=== PATIENT | female | born 1960 | race Caucasian/White ===

== ENCOUNTER 2021-09-23 15:35 | Observation (INO) ==
[2021-09-23 15:56] LABS: Basophils # (auto) 0.02 K/uL (0-0.2); Basophils % (auto) 0.2 %; Eosinophils # (auto) 0.05 K/uL (0-0.5); Eosinophils % (auto) 0.5 %; Hematocrit (blood only) 42.1 % (37-47); Hemoglobin 14.7 g/dL (12.0-16.0); Immature Granulocytes # (auto) 0.02 K/uL (0.00-0.02); Immature Granulocytes % (auto) 0.2 %; Lymphocytes # (auto) 1.92 K/uL (1.2-3.4); Lymphocytes % (auto) 19.7 %; Mean Corpuscular Hemoglobin 33.5 pg (25-34); Mean Corpuscular Hgb Conc 34.9 g/dL (32-36); Mean Corpuscular Volume 95.9 fL (80-100); Mean Platelet Volume 9.3 fL (7.4-10.4); Monocytes # (auto) 0.48 K/uL (0.11-0.59); Monocytes % (auto) 4.9 %; Neutrophils # (auto) 7.28 K/uL (1.4-6.5); Neutrophils % (auto) 74.5 %; Platelet Count 263 K/uL (130-400); RDW Coefficient of Variation 12.9 % (11.5-14.5); RDW Standard Deviation 44.5 fL (36.4-46.3); Red Blood Count 4.39 M/uL (4.2-5.4); White Blood Count 9.77 K/uL (4.8-10.8)
[2021-09-23] MEDS ORDERED: ASPIRIN CHEW 324 MG PO STA (15:56)
[2021-09-23] MEDS ORDERED: NITROGLYCERIN SL 0.4 MG/TAB TAB SL STA (15:56)
--- NOTE | 2021-09-23 15:56 | Emergency Department Note ---
Impression & Plan Chest pain, Acute hyponatremia, HTN (hypertension) ED Provider Note NAME: MAXIMUS BARRON AGE: 61 SEX: F : 1960 ARRIVES VIA: Ambulance INFORMANT: Patient ED PROVIDER(S): Petr Hobbs DO CHIEF COMPLAINT: Chest pain HPI: Patient is a 61-year-old female with a past medical history of diabetes, hypertension, hyperlipidemia, smoker who presents the ER for left-sided chest pressure. Denies any arm or jaw pain. Pain radiates into the chest and wraps around both sides to her back. Denies any belly pain, nausea, vomiting, or diarrhea. No dysuria, urgency, or frequency. Patient was receiving a mammogram and this is been present just after 2 PM. She was given nitro and aspirin with minimal relief prior to arrival. No other exacerbating remitting factors. ROS: See above HPI for pertinent positives & negatives. A total of 10 systems reviewed and were otherwise negative. PAST MEDICAL HISTORY:See Below PAST SURGICAL HISTORY:See Below FAMILY HISTORY:See Below SOCIAL HISTORY:See Below HOME MEDICATIONS:See Below ALLERGIES:See Below VITALS:See Below PHYSICAL EXAMINATION: GENERAL: Sitting up in bed, alert, well appearing, well nourished, no distress, non-toxic EYE EXAM: normal conjunctiva. PERRL and EOM's grossly intact. OROPHARYNX: no exudate, no erythema, lips, buccal mucosa, and tongue normal and mucous membranes are moist NECK: supple, no nuchal rigidity, no adenopathy, non-tender LUNGS: Clear to auscultation. Normal chest wall mechanics HEART: no murmurs, S1 normal and S2 normal ABDOMEN: abdomen soft, non-tender, normo-active bowel sounds, no masses, no rebound or guarding. UPPER EXTREMITIES: upper extremities are grossly normal. LOWER EXTREMITIES: No pitting edema. NEURO EXAM: Normal sensorium, cranial nerves II-XII grossly intact, normal speech, no gross weakness of arms, no gross weakness of legs. MEDICAL DECISION MAKING: Patient is a 61-year-old female who presents ER for precordial chest pain. IV was established blood was obtained. Labs show no significant leukocytosis or anemia. BMP with mild hyponatremia. LFTs bilirubin and lipase is unremarkable. Troponin was negative. Covid was negative. Angio of the chest was unremarkable. CT did show moderate atherosclerosis and she does have a history of diabetes, hypertension, hyperlipidemia and smokes. She is not a low risk per heart score and consequently was discussed with hospitalist for further evaluation. She given aspirin prior to arrival. Here she was given nitro and morphine. EKG was unremarkable. Triage Nursing notes reviewed. Limited review of prior medical records performed Vital Signs: reviewed and remarkable for HTN and tachy Differential diagnosis: Differential diagnoses includes but is not limited to acute coronary syndrome, myocardial infarction, pericarditis, pulmonary embolus, aortic dissection, pneumonia, pneumothorax, musculoskeletal, shingles, esophageal. ER treatment provided: See below Diagnostics interpreted by me: ECG: Sinus tachycardia rate of 113 Normal axis No PVCs QTC 416 Cardiac Monitoring: An order was placed for continuous cardiac monitoring. The monitor shows a rate of 102 with sinus rhythm. Laboratory studies: As stated above and show below. Imaging studies: CTA of the chest was unremarkable Chest x-ray was unremarkable Consultation(s): Discussed with the hospitalist for further evaluation Procedures: none Critical Care: None Past Med/Surg History Medical History (Updated 09/23/21 @ 20:37 by Petr Hobbs DO) Diabetes HTN (hypertension) Hyperlipidemia Surgical History (Updated 09/23/21 @ 18:18 by Em Zavala PA-C) History of colonoscopy S/P tonsillectomy Family History (Updated 09/23/21 @ 18:19 by Em Zavala PA-C) Father , 70s Coronary heart disease Hx of CABG Mother Colorectal cancer Social History (Updated 09/23/21 @ 18:20 by Em Zavala PA-C) Smoking Status: Current every day smoker Tobacco Type: Cigarettes Years Smoked: 40; Cigarettes Per Day: 12; Do You Dip or Chew Tobacco: No; Hx Alcohol Use: Yes Alcohol type: beer Alcohol type Comment: daily, 3-4 light beers Hx Substance Use: No Preferred Language: Portuguese Communication Ability: Effective Media Services Coordinator Required: No Beliefs That Will Affect Care: None Current Living Situation: Family Current Living Situation Comment: Lives with sister Other Information That Helps Us Care for You: No Feels Safe at Home: Yes Safety Concerns: Feels Safe At This Time Assistive Devices: Glasses Allergies Allergies Allergy/AdvReac Type Severity Reaction Status Date / Time Penicillins Allergy Unknown UNKNOWN Unverified 09/23/21 17:31 Sulfa (Sulfonamide Allergy Unknown UNKNOWN Unverified 09/23/21 17:31 Antibiotics) tetracycline Allergy Unknown UNKNOWN Unverified 09/23/21 17:31 Home Meds Home Medications Medication Instructions Recorded Confirmed acetaminophen 500 mg tablet 1,000 mg PO Q6H PRN 09/23/21 09/23/21 (Tylenol Extra Strength) atorvastatin 40 mg tablet 40 mg PO DAILY 09/23/21 09/23/21 citalopram 10 mg tablet 10 mg PO DAILY 09/23/21 09/23/21 insulin aspart U-100 100 unit/mL 0 unit SUBCUT TIDM 09/23/21 09/23/21 (3 mL) subcutaneous pen (Novolog Flexpen U-100 Insulin aspart) lisinopril 10 mg tablet 10 mg PO DAILY 09/23/21 09/23/21 meloxicam 15 mg tablet 15 mg PO DAILY 09/23/21 09/23/21 vitamin B complex 1 cap PO DAILY 09/23/21 09/23/21 Results & Data (ED) Vital Signs Vital Signs - 24 hr 09/23/21 15:51 09/23/21 16:10 Temperature 37 C Temperature Source Oral Pulse Rate 112 H 125 H Pulse Rate [Apical] 125 H Respiratory Rate 20 17 Blood Pressure 183/96 H Blood Pressure [Right Arm] 165/77 H Blood Pressure Mean 125 Blood Pressure Mean [Right Arm] 106 Pulse Oximetry 96 96 Oxygen Delivery Method Room Air Room Air Sepsis Recent Fever Within 48 Hours No Sepsis New/Unexplained Change in Mental Status No Sepsis Action Taken by Nursing No Action Required Laboratory Data Result diagrams: 09/23/21 15:28 09/23/21 15:28 Lab Results 09/23/21 09/23/21 Range/Units 15:28 15:28 WBC 9.77 (4.8-10.8) K/uL RBC 4.39 (4.2-5.4) M/uL Hgb 14.7 (12.0-16.0) g/dL Hct 42.1 (37-47) % MCV 95.9 (80-100) fL MCH 33.5 (25-34) pg MCHC 34.9 (32-36) g/dL RDW Std Deviation 44.5 (36.4-46.3) fL RDW Coeff of Luis Manuel 12.9 (11.5-14.5) % Plt Count 263 (130-400) K/uL MPV 9.3 (7.4-10.4) fL Immature Gran % (Auto) 0.2 % Neut % (Auto) 74.5 % Lymph % (Auto) 19.7 % [place] % (Auto) 4.9 % Eos % (Auto) 0.5 % Baso % (Auto) 0.2 % Neut # (Auto) 7.28 H (1.4-6.5) K/uL Lymph # (Auto) 1.92 (1.2-3.4) K/uL [place] # (Auto) 0.48 (0.11-0.59) K/uL Eos # (Auto) 0.05 (0-0.5) K/uL Baso # (Auto) 0.02 (0-0.2) K/uL Immature Gran # (Auto) 0.02 (0.00-0.02) K/uL Sodium 132 L (136-145) mmol/L Potassium 4.3 (3.5-5.1) mmol/L Chloride 99 (98-107) mmol/L Carbon Dioxide 23 (21-32) mmol/L Anion Gap 10 (3-11) BUN 22 (6-23) mg/dl Creatinine 1.02 (0.6-1.2) mg/dl Est Cr Clr Drug Dosing 58.1 ml/min Est GFR ( Amer) 67.8 ml/min Est GFR (Non-Af Amer) 58.5 ml/min BUN/Creatinine Ratio 21.6 H (10-20) Glucose 145 H (70-99(Fasting)) mg/dl Calcium 9.2 (8.5-10.1) mg/dl Total Bilirubin 0.9 (0.2-1.0) mg/dl AST 58 H (13-39) U/L ALT 41 (7-52) U/L Alkaline Phosphatase 87 (34-104) U/L Troponin I < 0.03 (0-0.04) ng/ml Total Protein 7.5 (6.0-8.3) gm/dl Albumin 4.5 (3.4-5.0) gm/dl Globulin 3.0 (2.5-4.0) gm/dl Albumin/Globulin Ratio 1.5 (0.9-2) Lipase 49 (11-82) U/L Administered Medications Discontinued Medications Aspirin (Aspirin Chew 324 Mg) 324 mg PO NOW STA Stop: 09/23/21 15:57 Last Admin: 09/23/21 16:05 Dose: Not Given Documented by: [id number] Ioversol (Optiray 320 125ml) 120 ml IV ONCE ONE Stop: 09/23/21 16:49 Last Admin: 09/23/21 16:49 Dose: 1 ml Documented by: [id number] Lisinopril (Lisinopril 10 Mg Tab) 10 mg PO NOW ONE Stop: 09/23/21 19:31 Last Admin: 09/23/21 20:24 Dose: 10 mg Documented by: [id number] Morphine Sulfate (Morphine Sulfate 4 Mg/Ml 1 Ml Carp\Vial) 4 mg IV NOW STA Stop: 09/23/21 16:27 Last Admin: 09/23/21 16:35 Dose: 4 mg Documented by: [id number] Morphine Sulfate (Morphine Sulfate 2 Mg/Ml Carp) 2 mg IV NOW STA Stop: 09/23/21 18:10 Last Admin: 09/23/21 18:39 Dose: 2 mg Documented by: [id number] Nitroglycerin (Nitroglycerin Sl 0.4 Mg/Tab Tab) 0.4 mg SL NOW STA Stop: 09/23/21 15:57 Last Admin: 09/23/21 16:09 Dose: 0.4 mg Documented by: [id number] Imaging Data Radiologist's Impression: Chest X-Ray 09/23/21 15:44 XR chest 1V portable CLINICAL HISTORY: Atypical chest pain TECHNIQUE: Single frontal radiograph of the chest was obtained. Comparison: Comparison is made to chest one view 01/16/2019 FINDINGS: No lines and tubes are seen. Calcified aortic knob is seen. The lungs are clear. No evidence of pleural effusion or pneumothorax. IMPRESSION: No acute chest disease. ACT 112: Negative or not required by law. Electronically signed by: Jordan Ordoñez M.D. 09/23/2021 4:46 PM Chest CTA 09/23/21 15:55 CT angio chest PE protocol CLINICAL HISTORY: PE. Atypical chest pain. TECHNIQUE: Multidetector row helical CT of the chest was performed with angiographic protocol. Coronal and sagittal reformations were obtained. Coronal and sagittal MIPS were obtained from the axial data set and were submitted for review. Automated dose lowering techniques and/or adjustment according to patient size were utilized for this exam. Comparison: None available at the time of this dictation. FINDINGS: Lungs and pleura: Diffuse centrilobular emphysema is seen most prominent in the upper lobes. Heart and pericardium: Heart size is normal. No pericardial effusion. Vessels: Moderate atherosclerotic changes in the aorta and coronary arteries. No evidence of pulmonary embolism. Mediastinum and sara: Unremarkable. Chest wall and lower neck: Subcentimeter thyroid nodules are noted which do not require follow-up by ACR criteria. Abdomen: Unremarkable. Bones: Degenerative changes in the thoracic spine. IMPRESSION: 1. No evidence of pulmonary embolism. 2. Moderate atherosclerosis. Diffuse emphysema. ACT 112: Negative or not required by law. Electronically signed by: Jordan Ordoñez M.D. 09/23/2021 5:12 PM Discharge Plan Visit Data Chief Complaint: Cardiac Assessment Stated Complaint: chest pressure/hypertension ED Provider: Petr Hobbs ED Midlevel Provider: Arabella Billings Discharge Problem: Chest pain, Acute hyponatremia, HTN (hypertension) Patient Disposition: Admitted As Inpatient Discharge Instructions Interventions: ED Discharge Assessment Last Done: 09/23/21 19:38
[2021-09-23 16:20] LABS: Alanine Aminotransferase 41 U/L (7-52); Albumin Globulin Ratio 1.5 (0.9-2); Albumin Level 4.5 gm/dl (3.4-5.0); Alkaline Phosphatase 87 U/L (34-104); Anion Gap 10 (3-11); Aspartate Aminotransferase 58 U/L (13-39); BUN Creatinine Ratio 21.6 (10-20); Bilirubin,Total 0.9 mg/dl (0.2-1.0); Blood Urea Nitrogen 22 mg/dl (6-23); Calcium 9.2 mg/dl (8.5-10.1); Carbon Dioxide 23 mmol/L (21-32); Chloride 99 mmol/L (98-107); Creatinine Clr Calc Pharmacy 58.1 ml/min; Est GFR (African American) 67.8 ml/min; Est GFR (Non-African American) 58.5 ml/min; Glucose 145 mg/dl (70-99(Fasting)); Lipase 49 U/L (11-82); Potassium 4.3 mmol/L (3.5-5.1); Sodium 132 mmol/L (136-145); Total Protein 7.5 gm/dl (6.0-8.3)
[2021-09-23 16:21] LABS: Troponin I < 0.03 ng/ml (0-0.04)
[2021-09-23] MEDS ORDERED: MoRPHine SULFATE 4 MG/ML 1 ML CARP\\VIAL IV STA (16:26)
--- NOTE | 2021-09-23 16:40 | Emergency Department Note ---
ED Visit Note Patient seen by myself and discussed with Dr. Hobbs who evaluated her separately. Please see his note for assessment and plan. Resident Activity Tracking Resident Involvement: Resident Care Provided Care Provided: Adult ED
--- NOTE | 2021-09-23 16:47 | XRay Report ---
XR chest 1V portable CLINICAL HISTORY: Atypical chest pain TECHNIQUE: Single frontal radiograph of the chest was obtained. Comparison: Comparison is made to chest one view 01/16/2019 FINDINGS: No lines and tubes are seen. Calcified aortic knob is seen. The lungs are clear. No evidence of pleur al effusion or pneumothorax. IMPRESSION: No acute chest disease. ACT 112: Negative or not required by law. Electronically signed by: Jordan Ordoñez M.D. 09/23/2021 4:46 PM
[2021-09-23] MEDS ORDERED: OPTIRAY 320 125ml IV ONE (16:48)
--- NOTE | 2021-09-23 17:13 | CT Scan Report ---
CT angio chest PE protocol CLINICAL HISTORY: PE. Atypical chest pain. TECHNIQUE: Multidetector row helical CT of the chest was performed with angiographic protocol. Marin l and sagittal reformations were obtained. Coronal and sagittal MIPS were obtained from the axial jonathan a set and were submitted for review. Automated dose lowering techniques and/or adjustment according to patient size were utilized for this exam. Comparison: None available at the time of this dictation. FINDINGS: Lungs and pleura: Diffuse centrilobular emphysema is seen most prominent in the upper lobes. Heart and pericardium: Heart size is normal. No pericardial effusion. Vessels: Moderate atherosclerotic changes in the aorta and coronary arteries. No evidence of pulmonar y embolism. Mediastinum and sara: Unremarkable. Chest wall and lower neck: Subcentimeter thyroid nodules are noted which do not require follow-up by ACR criteria. Abdomen: Unremarkable. Bones: Degenerative changes in the thoracic spine. IMPRESSION: 1. No evidence of pulmonary embolism. 2. Moderate atherosclerosis. Diffuse emphysema. ACT 112: Negative or not required by law. Electronically signed by: Jordan Ordoñez M.D. 09/23/2021 5:12 PM
[2021-09-23] MEDS ORDERED: LABETALOL HCL IV 5 MG/ML 20ML IV STA (18:07)
[2021-09-23] MEDS ORDERED: MoRPHine SULFATE 2 MG/ML CARP IV STA (18:09)
--- NOTE | 2021-09-23 18:27 | History & Physical Report ---
Date of Service September 23, 2021 Assessment & Plan (1) Chest pain: (2) Diabetes: (3) Hyperlipidemia: (4) HTN (hypertension): Plan: This is a 61-year-old female who has significant past medical history of T2DM, HTN, HLD, tobacco abuse, alcohol use who presents to ED after experiencing chest pain since 1330. Atypical chest pain Uncontrolled hypertension Sinus Tachycardia Admit to telemetry Patient with significant risk factors including HTN, HLD, T2DM, chronic tobacco and alcohol use Chest pain is still present, initial troponin negative, EKG without ST or T wave changes I am able to reproduce chest pain and left upper anterior chest wall, possible musculoskeletal component vs uncontrolled HTN vs ACS CTA negative for PE Cycle troponins, obtain echocardiogram A1c, lipid panel in a.m. Consult cardiology for possibility of stress test Give labetalol 5 mg x 1 now Continue lisinopril, Lipitor pt was on daily ASA but stopped taking add HS pepcid in event sx GERD related HTN Patient BP elevated in ED After review of epic vitals, blood pressure mostly well controlled Increase lisinopril 20mg, give 10mg this evening prn IV labetalol HLD Continue statin T2DM, well controlled A1c 5.7 in 06/2021 On NovoLog with meals as outpatient NovoLog per protocol A1c in a.m. Tobacco abuse Encourage smoking cessation Alcohol use Drinks 3-4 light beers daily Could possibly be culprit of tachycardia AWSS protocol Daily thiamine and folic acid DVT prophylaxis: SQ heparin Dispo: tele PCP: Dean FULL CODE Pt was seen and examined in collaboration with Dr. Styles, please see addendum History of Present Illness Chief Complaint: Chest pain since 0 Primary Care Provider: Abigail Moran, This is a 61-year-old female who has significant past medical history of T2DM, HTN, HLD, tobacco abuse, alcohol use who presents to ED after experiencing chest pain since 1330. She states that she presented to [facility] for a mammogram. Prior to mammogram at approximately 1330 she developed shakiness. Being a diabetic she thought maybe it was her blood sugar and staff gave her genesis crackers. This did not improve her symptoms. She then developed left- sided chest heaviness with radiation under both bilateral breasts near the rib cage as well as around to her back. Pain was constant, not made worse with inspiration, associated with initial shortness of breath that is since resolved, not associated with diaphoresis or nausea. She has never experienced similar pain in the past. She does admit to prior history of acid reflux as well as peptic ulcer disease secondary to H. pylori. She does not feel this is similar. Symptoms are not reproduced by movement. She has not walked since the incident so is unsure if exertion makes symptoms worse. She did proceed with the mammogram, but eventually it was stopped due to pain. Pain is currently a 4 out of 10. It improved after initiating IV morphine. Nitro was given in ED and this did not alleviate symptoms. She denies any prior history of heart disease. She denies any fever, chills, sweats, lightheadedness, dizziness, syncope, cough, hemoptysis, nausea, vomiting, abdominal pain, change in bowel or urinary habits. She denies any recent life stressors and does not feel anxious. Mammo was just routine screening. She is a chronic smoker for the past 30 to 40 years. She also drinks 3 to 4 cans of light beer a day. Her father has a history of CAD with bypass in his 70s. In ED patient was tachycardic and hypertensive. She admits to taking her lisinopril today.Her last alcoholic drink was last evening. Her CBC and CMP was generally unremarkable except for sodium 132, glucose 145, AST 58. Her chest CTA was negative for acute PE but did reveal moderate atherosclerosis as well as diffuse emphysema. Chest x-ray was negative for acute disease. Her initial troponin was undetectable and EKG revealed sinus tachycardia but no acute ST or T wave changes. Allergies Allergy/AdvReac Type Severity Reaction Status Date / Time Penicillins Allergy Unknown UNKNOWN Unverified 09/23/21 17:31 Sulfa (Sulfonamide Allergy Unknown UNKNOWN Unverified 09/23/21 17:31 Antibiotics) tetracycline Allergy Unknown UNKNOWN Unverified 09/23/21 17:31 Home Medications Medication Instructions Recorded Confirmed Type acetaminophen 500 mg tablet 1,000 mg PO Q6H PRN 09/23/21 09/23/21 History (Tylenol Extra Strength) atorvastatin 40 mg tablet 40 mg PO DAILY 09/23/21 09/23/21 History citalopram 10 mg tablet 10 mg PO DAILY 09/23/21 09/23/21 History insulin aspart U-100 100 unit/mL 0 unit SUBCUT TIDM 09/23/21 09/23/21 History (3 mL) subcutaneous pen (Novolog Flexpen U-100 Insulin aspart) lisinopril 10 mg tablet 10 mg PO DAILY 09/23/21 09/23/21 History meloxicam 15 mg tablet 15 mg PO DAILY 09/23/21 09/23/21 History vitamin B complex 1 cap PO DAILY 09/23/21 09/23/21 History Past Med/Surg History Medical History (Updated 09/23/21 @ 20:37 by Petr Hobbs DO) Diabetes HTN (hypertension) Hyperlipidemia Surgical History (Updated 09/23/21 @ 18:18 by Em Zavala PA-C) History of colonoscopy S/P tonsillectomy Family History (Updated 09/23/21 @ 18:19 by Em Zavala PA-C) Father , 70s Coronary heart disease Hx of CABG Mother Colorectal cancer Social History (Updated 09/23/21 @ 18:20 by Em Zavala PA-C) Smoking Status: Current every day smoker Tobacco Type: Cigarettes Years Smoked: 40; Cigarettes Per Day: 12; Do You Dip or Chew Tobacco: No; Hx Alcohol Use: Yes Alcohol type: beer Alcohol type Comment: daily, 3-4 light beers Hx Substance Use: No Preferred Language: Tongan Communication Ability: Effective Finished Carpet Inspector Required: No Beliefs That Will Affect Care: None Current Living Situation: Family Current Living Situation Comment: Lives with sister Other Information That Helps Us Care for You: No Feels Safe at Home: Yes Safety Concerns: Feels Safe At This Time Assistive Devices: Glasses Review of Systems Review of Systems: All systems reviewed & are unremarkable except as noted in HPI & below Physical Exam Physical Exam: Constitutional: WD/WN, vitals as above, NAD, sitting up in bed, pleasant, conversing easily Head: Normocephalic, Atraumatic Eyes: PERRL, conjunctivae normal, anicteric sclerae ENMT: external ear and nose normal, oropharynx normal Neck: trachea midline, no thyromegaly normal visual inspection Respiratory: normal respiratory effort, lungs clear to auscultation, no wheeze, rales, rhonchi. Normal insp/exp effort, no accessory muscle use Cardiovascular: Tachycardic rate, regular rhythm, no murmur, no edema Vessels: no JVD or carotid bruit Chest: normal inspection of chest , chest pain reproduced when palpating the left upper anterior chest wall, it does not reproduce underneath bilateral breas ts on the rib cage Abdomen: normal bowel sounds, soft, nontender, no hepatosplenomegaly Musculoskeletal: no cyanosis or clubbing, extremities motor strength 5/5 Skin: no rashes, warm and dry normal turgor Neurologic: PERRL, EOMI, accommodation nl, no face palsy, no dysarthria CN's II-XI intact bilaterally and moves all extremities Psychiatric: A+Ox3, euthymic affect Lymphatic: no cervical or axillary lymphadenopathy : deferred Results & Data Results & Data ([place]) Vital Signs (Past 12 Hours) Vital Signs Temp Pulse Pulse Resp BP BP Pulse Ox 09/23/21 16:10 125 H 125 H 17 165/77 H 96 09/23/21 15:51 37 C 112 H 20 183/96 H 96 Diagnostic Findings Chest X-Ray 09/23/21 15:44 XR chest 1V portable CLINICAL HISTORY: Atypical chest pain TECHNIQUE: Single frontal radiograph of the chest was obtained. Comparison: Comparison is made to chest one view 01/16/2019 FINDINGS: No lines and tubes are seen. Calcified aortic knob is seen. The lungs are clear. No evidence of pleural effusion or pneumothorax. IMPRESSION: No acute chest disease. ACT 112: Negative or not required by law. Electronically signed by: Jordan Ordoñez M.D. 09/23/2021 4:46 PM Chest CTA 09/23/21 15:55 CT angio chest PE protocol CLINICAL HISTORY: PE. Atypical chest pain. TECHNIQUE: Multidetector row helical CT of the chest was performed with angiographic protocol. Coronal and sagittal reformations were obtained. Coronal and sagittal MIPS were obtained from the axial data set and were submitted for review. Automated dose lowering techniques and/or adjustment according to patient size were utilized for this exam. Comparison: None available at the time of this dictation. FINDINGS: Lungs and pleura: Diffuse centrilobular emphysema is seen most prominent in the upper lobes. Heart and pericardium: Heart size is normal. No pericardial effusion. Vessels: Moderate atherosclerotic changes in the aorta and coronary arteries. No evidence of pulmonary embolism. Mediastinum and sara: Unremarkable. Chest wall and lower neck: Subcentimeter thyroid nodules are noted which do not require follow-up by ACR criteria. Abdomen: Unremarkable. Bones: Degenerative changes in the thoracic spine. IMPRESSION: 1. No evidence of pulmonary embolism. 2. Moderate atherosclerosis. Diffuse emphysema. ACT 112: Negative or not required by law. Electronically signed by: Jordan Ordoñez M.D. 09/23/2021 5:12 PM Medications Administered Medication List Discontinued Medications Aspirin (Aspirin Chew 324 Mg) 324 mg PO NOW STA Stop: 09/23/21 15:57 Last Admin: 09/23/21 16:05 Dose: Not Given Documented by: [id number] Ioversol (Optiray 320 125ml) 120 ml IV ONCE ONE Stop: 09/23/21 16:49 Last Admin: 09/23/21 16:49 Dose: 1 ml Documented by: [id number] Morphine Sulfate (Morphine Sulfate 4 Mg/Ml 1 Ml Carp\Vial) 4 mg IV NOW STA Stop: 09/23/21 16:27 Last Admin: 09/23/21 16:35 Dose: 4 mg Documented by: [id number] Nitroglycerin (Nitroglycerin Sl 0.4 Mg/Tab Tab) 0.4 mg SL NOW STA Stop: 09/23/21 15:57 Last Admin: 09/23/21 16:09 Dose: 0.4 mg Documented by: [id number] ECG Rate (beats per minute): 113 Rhythm: sinus tachycardia COVID-19 Results Results COVID-19 Adm Lab Results: RBC 4.39 M/uL (4.2-5.4) 09/23/21 WBC 9.77 K/uL (4.8-10.8) 09/23/21 Hgb 14.7 g/dL (12.0-16.0) 09/23/21 Hct 42.1 % (37-47) 09/23/21 Plt Count 263 K/uL (130-400) 09/23/21 Neutrophils (%) (Auto) 74.5 % 09/23/21 Lymphocytes (%) (Auto) 19.7 % 09/23/21 Monocytes # (Auto) 0.48 K/uL (0.11-0.59) 09/23/21 Eosinophils # (Auto) 0.05 K/uL (0-0.5) 09/23/21 Immature Granulocyte % (Auto) 0.2 % 09/23/21 Neutrophils # (Auto) 7.28 K/uL (1.4-6.5) H 09/23/21 Lymphocytes # (Auto) 1.92 K/uL (1.2-3.4) 09/23/21 Monocytes # (Auto) 0.48 K/uL (0.11-0.59) 09/23/21 Eosinophils # (Auto) 0.05 K/uL (0-0.5) 09/23/21 Basophils # (Auto) 0.02 K/uL (0-0.2) 09/23/21 Immature Granulocyte # (Auto) 0.02 K/uL (0.00-0.02) 09/23/21 Na 132 mmol/L (136-145) L 09/23/21 K 4.3 mmol/L (3.5-5.1) 09/23/21 Cl 99 mmol/L (98-107) 09/23/21 CO2 23 mmol/L (21-32) 09/23/21 Anion Gap 10 (3-11) 09/23/21 BUN 22 mg/dl (6-23) 09/23/21 Creatinine 1.02 mg/dl (0.6-1.2) 09/23/21 BUN/Creatinine Ratio 21.6 (10-20) H 09/23/21 Glucose Level 145 mg/dl (70-99(Fasting)) H 09/23/21 Ca 9.2 mg/dl (8.5-10.1) 09/23/21 Total Bilirubin 0.9 mg/dl (0.2-1.0) 09/23/21 AST/SGOT 58 U/L (13-39) H 09/23/21 ALT/SGPT 41 U/L (7-52) 09/23/21 Alkaline Phosphatase 87 U/L (34-104) 09/23/21 Total Protein 7.5 gm/dl (6.0-8.3) 09/23/21 Albumin 4.5 gm/dl (3.4-5.0) 09/23/21 Globulin 3.0 gm/dl (2.5-4.0) 09/23/21 Albumin/Globulin Ratio 1.5 (0.9-2) 09/23/21 Troponin I < 0.03 ng/ml (0-0.04) 09/23/21 SARS-CoV-2, RNA, NAAT NEGATIVE (NEGATIVE) 09/23/21 Chest X-Ray 09/23/21 Code Status & VTE Plan Code Status Full code VTE Prophylaxis Plan VTE Prophylaxis will be ordered: Yes Supervising Physician Co-Signing Physician Notes Patient is a 61-year-old female with history of diabetes mellitus, hypertension, hyperlipidemia, tobacco use and alcohol use disorder and other medical problems presents with history of chest pain associated with shakiness which started this afternoon. Patient describes chest pain to be pressure-like heaviness radiating to back, intermittently to shoulder and bilateral ribs. Patient states that nitroglycerin given in ED did not help with chest pain but morphine helped partly. She denies any recent infections. She admits to having GERD but currently not on any medications. Denies any HPI for complete details of presentation. Blood work suggestive of hyponatremia 132, glucose 145, AST 58, initial troponin negative. CTA showed no acute process which showed evidence of moderate atherosclerosis and diffuse emphysema. EKG showed sinus tachycardia without ST-T wave changes. On exam patient is well-built and nourished, no apparent distress, normocephalic atraumatic, EOMI, normal breath sounds, clear to auscultation, S1-S2, no murmur, tachycardia, no pedal edema,+ reproducible chest pain predominantly epigastric, left upper quadrant, abdomen soft, nontender, normal bowel sounds, alert, awake, oriented, grossly no focal deficits. Patient is admitted for management of chest pain rule out ACS. Agree with trending cardiac enzymes, chest checking resting echo, lipid panel and A1c. Increase lisinopril to 20 mg daily for better blood pressure control. Labetalol as needed. Will repeat EKG in the morning. Consider cardiology. N.p.o. after midnight. Started on aspirin 81 mg daily. Agree with thiamine, folic acid and monitoring for alcohol withdrawal. At risk Ativan ordered. Counseled to quit tobacco, alcohol use. I personally reviewed the record. Patient is interviewed and examined at bedside. Patient's care is coordinated with Em Zavala PA-C. Please refer to the documentation above for details of patient's presentation and for discussion of other issues.
[2021-09-23] MEDS ORDERED: ATIVAN IV ALCOHOL WITHDRAWL IV PRN (19:30)
[2021-09-23] MEDS ORDERED: lisinopril 10 MG TAB PO ONE (19:30)
[2021-09-23] MEDS ORDERED: LABETALOL HCL IV 5 MG/ML 20ML IV PRN (19:30)
[2021-09-23] MEDS ORDERED: CARBOHYDRATES FOR HYPOGLYCEMIA PO PRN (19:30)
[2021-09-23] MEDS ORDERED: MAGNESIUM HYDROXIDE SUSP 30 ML UDC PO PRN (19:30)
[2021-09-23] MEDS ORDERED: LORazepam 2 MG/1 ML VIAL IV PRN ×3 (19:30)
[2021-09-23] MEDS ORDERED: GLUCOSE 40% GEL 15 GM TUBE PO PRN (19:30)
[2021-09-23] MEDS ORDERED: ALUMINUM/MAGNESIUM SUSP 30 ML UDC PO PRN (19:30)
[2021-09-23] MEDS ORDERED: POLYETHYLENE (MIRALAX) 17 GM PACK PO PRN (19:30)
[2021-09-23] MEDS ORDERED: DEXTROSE 50% 50 ML SYRINGE IV PRN (19:30)
[2021-09-23] MEDS ORDERED: GLUCAGON FOR INJ 1 MG VIAL SQ PRN (19:30)
[2021-09-23] MEDS ORDERED: ACETAMINOPHEN 325 MG TAB PO PRN (19:30)
[2021-09-23] MEDS ORDERED: GLUCOSE 10 TABS/TUBE PO PRN (19:30)
[2021-09-23] MEDS ORDERED: ONDANSETRON INJ 2 MG/ML 2 ML VIAL IV PRN (19:30)
[2021-09-23] MEDS ORDERED: NITROGLYCERIN SL 0.4 MG/TAB TAB SL PRN (19:30)
[2021-09-23] MEDS: INSULIN ASPART PER UNIT SC SCH (20:41)
[2021-09-23] MEDS ORDERED: FAMOTIDINE 20 MG TAB PO SCH (21:00)
[2021-09-23] MEDS: THIAMINE HCL 100 MG TAB PO SCH (21:02)
[2021-09-23] MEDS: HEPARIN SOD 5,000 UNIT/0.5 ML VIAL SQ SCH (21:02)
[2021-09-23] MEDS: FOLIC ACID 1 MG TAB PO SCH (21:02)
[2021-09-24 03:24] LABS: Hematocrit (blood only) 38.2 % (37-47); Hemoglobin 13.1 g/dL (12.0-16.0); Mean Corpuscular Hemoglobin 32.7 pg (25-34); Mean Corpuscular Hgb Conc 34.3 g/dL (32-36); Mean Corpuscular Volume 95.3 fL (80-100); Mean Platelet Volume 8.8 fL (7.4-10.4); Platelet Count 209 K/uL (130-400); RDW Coefficient of Variation 12.8 % (11.5-14.5); RDW Standard Deviation 44.2 fL (36.4-46.3); Red Blood Count 4.01 M/uL (4.2-5.4); White Blood Count 6.88 K/uL (4.8-10.8)
[2021-09-24 03:47] LABS: Alanine Aminotransferase 31 U/L (7-52); Albumin Globulin Ratio 1.6 (0.9-2); Albumin Level 3.8 gm/dl (3.4-5.0); Alkaline Phosphatase 68 U/L (34-104); Anion Gap 6 (3-11); Aspartate Aminotransferase 38 U/L (13-39); BUN Creatinine Ratio 22.6 (10-20); Bilirubin,Total 0.9 mg/dl (0.2-1.0); Blood Urea Nitrogen 19 mg/dl (6-23); Calcium 8.9 mg/dl (8.5-10.1); Carbon Dioxide 24 mmol/L (21-32); Chloride 104 mmol/L (98-107); Chol HDL Ratio 1.8 (0-5); Cholesterol 126 mg/dl (0-200); Creatinine Clr Calc Pharmacy 64.2 ml/min; Est GFR (African American) 85.7 ml/min; Globulin 2.4 gm/dl (2.5-4.0); Glucose 87 mg/dl (70-99(Fasting)); HDL Cholesterol 72 mg/dl; LDL Cholesterol Calculated 20 mg/dl; Magnesium 2.1 mg/dl (1.7-2.4); Potassium 3.5 mmol/L (3.5-5.1); Sodium 134 mmol/L (136-145); Total Protein 6.2 gm/dl (6.0-8.3); Triglycerides 170 mg/dl (0-150); VLDL Cholesterol 34 mg/dl (0-30)
[2021-09-24 04:14] LABS: Troponin I < 0.03 ng/ml (0-0.04)
--- NOTE | 2021-09-24 06:38 | Electrocardiogram Report ---
Test Reason : Blood Pressure : / mmHG Vent. Rate : 113 BPM Atrial Rate : 113 BPM P-R Int : 132 ms QRS Dur : 066 ms QT Int : 304 ms P-R-T Axes : 078 061 068 degrees QTc Int : 416 ms Poor data quality, interpretation may be adversely affected Sinus tachycardia Nonspecific ST abnormality When compared with ECG of 16-JAN-2019 17:26, No significant change was found Confirmed by Shoaib Treviño ([id number]) on 09/24/2021 6:38:24 AM Referred By: REFERRED SELF Confirmed By:Shoaib Treviño
[2021-09-24] MEDS: INSULIN ASPART PER UNIT SC SCH (06:42)
[2021-09-24] MEDS: HEPARIN SOD 5,000 UNIT/0.5 ML VIAL SQ SCH (06:42)
[2021-09-24 06:45] LABS: Estimated Average Glucose 126 mg/dl
[2021-09-24] MEDS: FOLIC ACID 1 MG TAB PO SCH (07:58)
[2021-09-24] MEDS: THIAMINE HCL 100 MG TAB PO SCH (07:59)
--- NOTE | 2021-09-24 08:51 | Cardiology Consultation ---
Date of Consultation September 24, 2021 Assessment & Plan (1) Chest pain: (2) HTN (hypertension): (3) Diabetes: (4) Hyperlipidemia: (5) Coronary artery calcification seen on CAT scan: Atypical chest pain symptoms. Patient certainly has risk factors for CAD including HTN, HLD, Type 2 diabetic requiring insulin, Tobacco and EOTH use. Coronary artery calcifications seen on chest CT. Echo pending. Recommend optimizing medical therapy with the addition of beta wilver, Coreg 6.25 mg BID to assist with preload reduction. Continue SAÚL, may need to increase dose. She should remain on aspirin 81 mg daily. Increase Lipitor to 80 mg daily. Pending echo results, will follow up as an outpatient for possible ischemic evaluation with stress testing at that time. Given long standing history of tobacco use patient likely has a degree of COPD which could be contributing to her symptoms. Right lung field was course to auscultation and patient has a moist productive cough, will defer to primary team for workup of COPD exacerbation vs pneumonia. Case discussed with Dr. Sneed. Supervising Physician Co-Signing Physician Notes Patient was seen and examined, chart, medications, telemetry reviewed. Plan as outlined. Current symptoms do not appear cardiac in etiology exacerbation with cough. EKGs and enzymes without ischemia echocardiogram with normal to hyperdynamic LV function. Chest exam is notable for diffuse wheezing and rhonchi on right lung field Plan as outlined optimize medical therapies for hypertension and heart rate control. Adding carvedilol 6.25 mg twice per day in addition to lisinopril statin and aspirin Cardiology follow-up post hospital discharge History of Present Illness Reason for Consultation: Chest pain Requesting Physician: Kelsi Houghist Attending Physician: Roxanna Cohen DO History of Present Illness 61 year old female with complaints of chest pain. Saw PCP yesterday with complaints of bandlike chest pressure/tightness associated with shortness of breath (inability to take a deep breath in) and shakiness. Patient was tachycardic with heart rates in the 100s and blood pressure was elevated at 194/90. Usual chest pain workup completed in ED- EKG unremarkable (ST [address] changes). Labs stable, Trops negative x3, Covid was negative. CXR normal. Angio of the chest was unremarkable. CT did show moderate atherosclerosis. Patient was treated with nitro, morphine, x1 dose of labetalol 5 mg IV and lisinopril was increased to 20 mg daily. Upon entrance into the room- patient asleep in bed, wakes easily. Alert and oriented. Continues to have chest tightness (present at time of exam). Chest tightness was now slightly reproducible to palpation and worse if she takes a deep breath in. Notes that she is now coughing up phlegm. Notes nitro did NOT help her symptoms and the morphine only produced slight improvement. Does occasionally have palpitations which make her feel shaky. Blood pressure elevated today despite increase in lisinopril last night. Tele: SR 80-90s Past Medical History: Moderate CAD per chest CT at [facility] 09/2021 (Negative MYRANDA 08/2014) HTN HLD Type 2 DM- insulin dependent PUD secondary to H. Pylori Tobacco use x40 years, 3/4 ppd Alcohol use (drinks 3-4 beers daily) Fhx of CAD- father undergoing bypass in his 70s. Allergies Allergy/AdvReac Type Severity Reaction Status Date / Time Penicillins Allergy Unknown UNKNOWN Unverified 09/23/21 17:31 Sulfa (Sulfonamide Allergy Unknown UNKNOWN Unverified 09/23/21 17:31 Antibiotics) tetracycline Allergy Unknown UNKNOWN Unverified 09/23/21 17:31 Home Medications Medication Instructions Recorded Confirmed Type acetaminophen 500 mg tablet 1,000 mg PO Q6H PRN 09/23/21 09/23/21 History (Tylenol Extra Strength) atorvastatin 40 mg tablet 40 mg PO DAILY 09/23/21 09/23/21 History citalopram 10 mg tablet 10 mg PO DAILY 09/23/21 09/23/21 History insulin aspart U-100 100 unit/mL 0 unit SUBCUT TIDM 09/23/21 09/23/21 History (3 mL) subcutaneous pen (Novolog Flexpen U-100 Insulin aspart) lisinopril 10 mg tablet 10 mg PO DAILY 09/23/21 09/23/21 History meloxicam 15 mg tablet 15 mg PO DAILY 09/23/21 09/23/21 History vitamin B complex 1 cap PO DAILY 09/23/21 09/23/21 History Patient History Medical History (Updated 09/24/21 @ 10:26 by RUPERT Elias) Diabetes HTN (hypertension) Hyperlipidemia Surgical History (Updated 09/23/21 @ 18:18 by Em Zavala PA-C) History of colonoscopy S/P tonsillectomy Family History (Updated 09/23/21 @ 18:19 by Em Zavala PA-C) Father , 70s Coronary heart disease Hx of CABG Mother Colorectal cancer Social History (Updated 09/23/21 @ 18:20 by Em Zavala PA-C) Smoking Status: Current every day smoker Tobacco Type: Cigarettes Years Smoked: 40; Cigarettes Per Day: 12; Do You Dip or Chew Tobacco: No; Hx Alcohol Use: Yes Alcohol type: beer Alcohol type Comment: daily, 3-4 light beers Hx Substance Use: No Preferred Language: Spanish Communication Ability: Effective Epic [employer] Required: No Beliefs That Will Affect Care: None Current Living Situation: Family Current Living Situation Comment: Lives with sister Other Information That Helps Us Care for You: No Feels Safe at Home: Yes Safety Concerns: Feels Safe At This Time Assistive Devices: None Review of Systems Review of Systems: All systems reviewed & are unremarkable except as noted in HPI & below Physical Exam Physical Exam: General: No acute distress. A+Ox3. HEENT: Normocephalic. Atraumatic. Conjunctiva and sclera clear. NECK: No carotid bruits. No JVD. Carotid upstrokes are brisk. Heart: RRR. S1 and S2 noted without murmur, rubs, gallops. PMI non displaced. Lungs: Course breath sounds on the right. Clear left. Abdomen: Normal bowel sounds. Soft. Nontender. No masses or organomegaly. No abdominal bruits. Extremities: No edema. No clubbing or cyanosis. Pulses: radial=2/4, posterior tibial=2/4, dorsalis pedis = 2/4. NEURO: No focal deficits. PSYCH: Normal. Results & Data ([facility]) Vital Signs (Past 12 Hours) Vital Signs Temp Pulse Pulse Resp BP Pulse Ox 09/24/21 07:49 37.0 C 74 20 148/83 H 96 09/24/21 03:29 37.2 C 82 18 156/74 H 96 09/24/21 00:00 94 H 09/23/21 23:21 36.9 C 87 20 140/76 97 Laboratory Results 09/24/21 09/24/21 09/24/21 Range/Units 06:24 03:09 03:09 WBC (4.8-10.8) K/uL RBC (4.2-5.4) M/uL Hgb (12.0-16.0) g/dL Hct (37-47) % MCV (80-100) fL MCH (25-34) pg MCHC (32-36) g/dL RDW Std Deviation (36.4-46.3) fL RDW Coeff of Luis Manuel (11.5-14.5) % Plt Count (130-400) K/uL MPV (7.4-10.4) fL Immature Gran % (Auto) % Neut % (Auto) % Lymph % (Auto) % [place] % (Auto) % Eos % (Auto) % Baso % (Auto) % Neut # (Auto) (1.4-6.5) K/uL Lymph # (Auto) (1.2-3.4) K/uL [place] # (Auto) (0.11-0.59) K/uL Eos # (Auto) (0-0.5) K/uL Baso # (Auto) (0-0.2) K/uL Immature Gran # (Auto) (0.00-0.02) K/uL Sodium (136-145) mmol/L Potassium (3.5-5.1) mmol/L Chloride (98-107) mmol/L Carbon Dioxide (21-32) mmol/L Anion Gap (3-11) BUN (6-23) mg/dl Creatinine (0.6-1.2) mg/dl Est Cr Clr Drug Dosing ml/min Est GFR ( Amer) ml/min Est GFR (Non-Af Amer) ml/min BUN/Creatinine Ratio (10-20) Glucose (70-99(Fasting)) mg/dl POC Glucose 98 (70-99) mg/dl Estimat Average Glucose 126 mg/dl Hemoglobin A1c 6.0 H (4.5-5.6) % Calcium (8.5-10.1) mg/dl Magnesium (1.7-2.4) mg/dl Total Bilirubin (0.2-1.0) mg/dl AST (13-39) U/L ALT (7-52) U/L Alkaline Phosphatase (34-104) U/L Troponin I (0-0.04) ng/ml Total Protein (6.0-8.3) gm/dl Albumin (3.4-5.0) gm/dl Globulin (2.5-4.0) gm/dl Albumin/Globulin Ratio (0.9-2) Triglycerides (0-150) mg/dl Cholesterol (0-200) mg/dl LDL Cholesterol, Calc mg/dl VLDL Cholesterol, Calc (0-30) mg/dl HDL Cholesterol mg/dl Cholesterol/HDL Ratio (0-5) Lipase (11-82) U/L Hepatitis C Ab Screen Pending SARS-CoV-2, RNA, NAAT (NEGATIVE) 09/24/21 09/24/21 09/23/21 Range/Units 03:09 03:09 21:05 WBC 6.88 (4.8-10.8) K/uL RBC 4.01 L (4.2-5.4) M/uL Hgb 13.1 (12.0-16.0) g/dL Hct 38.2 (37-47) % MCV 95.3 (80-100) fL MCH 32.7 (25-34) pg MCHC 34.3 (32-36) g/dL RDW Std Deviation 44.2 (36.4-46.3) fL RDW Coeff of Luis Manuel 12.8 (11.5-14.5) % Plt Count 209 (130-400) K/uL MPV 8.8 (7.4-10.4) fL Immature Gran % (Auto) % Neut % (Auto) % Lymph % (Auto) % [place] % (Auto) % Eos % (Auto) % Baso % (Auto) % Neut # (Auto) (1.4-6.5) K/uL Lymph # (Auto) (1.2-3.4) K/uL [place] # (Auto) (0.11-0.59) K/uL Eos # (Auto) (0-0.5) K/uL Baso # (Auto) (0-0.2) K/uL Immature Gran # (Auto) (0.00-0.02) K/uL Sodium 134 L (136-145) mmol/L Potassium 3.5 (3.5-5.1) mmol/L Chloride 104 (98-107) mmol/L Carbon Dioxide 24 (21-32) mmol/L Anion Gap 6 (3-11) BUN 19 (6-23) mg/dl Creatinine 0.84 (0.6-1.2) mg/dl Est Cr Clr Drug Dosing 64.2 ml/min Est GFR ( Amer) 85.7 ml/min Est GFR (Non-Af Amer) 74.0 ml/min BUN/Creatinine Ratio 22.6 H (10-20) Glucose 87 (70-99(Fasting)) mg/dl POC Glucose (70-99) mg/dl Estimat Average Glucose mg/dl Hemoglobin A1c (4.5-5.6) % Calcium 8.9 (8.5-10.1) mg/dl Magnesium 2.1 (1.7-2.4) mg/dl Total Bilirubin 0.9 (0.2-1.0) mg/dl AST 38 (13-39) U/L ALT 31 (7-52) U/L Alkaline Phosphatase 68 (34-104) U/L Troponin I < 0.03 < 0.03 (0-0.04) ng/ml Total Protein 6.2 (6.0-8.3) gm/dl Albumin 3.8 (3.4-5.0) gm/dl Globulin 2.4 L (2.5-4.0) gm/dl Albumin/Globulin Ratio 1.6 (0.9-2) Triglycerides 170 H (0-150) mg/dl Cholesterol 126 (0-200) mg/dl LDL Cholesterol, Calc 20 mg/dl VLDL Cholesterol, Calc 34 H (0-30) mg/dl HDL Cholesterol 72 mg/dl Cholesterol/HDL Ratio 1.8 (0-5) Lipase (11-82) U/L Hepatitis C Ab Screen SARS-CoV-2, RNA, NAAT (NEGATIVE) 09/23/21 09/23/21 09/23/21 Range/Units 20:20 17:57 15:28 WBC (4.8-10.8) K/uL RBC (4.2-5.4) M/uL Hgb (12.0-16.0) g/dL Hct (37-47) % MCV (80-100) fL MCH (25-34) pg MCHC (32-36) g/dL RDW Std Deviation (36.4-46.3) fL RDW Coeff of Luis Manuel (11.5-14.5) % Plt Count (130-400) K/uL MPV (7.4-10.4) fL Immature Gran % (Auto) % Neut % (Auto) % Lymph % (Auto) % [place] % (Auto) % Eos % (Auto) % Baso % (Auto) % Neut # (Auto) (1.4-6.5) K/uL Lymph # (Auto) (1.2-3.4) K/uL [place] # (Auto) (0.11-0.59) K/uL Eos # (Auto) (0-0.5) K/uL Baso # (Auto) (0-0.2) K/uL Immature Gran # (Auto) (0.00-0.02) K/uL Sodium 132 L (136-145) mmol/L Potassium 4.3 (3.5-5.1) mmol/L Chloride 99 (98-107) mmol/L Carbon Dioxide 23 (21-32) mmol/L Anion Gap 10 (3-11) BUN 22 (6-23) mg/dl Creatinine 1.02 (0.6-1.2) mg/dl Est Cr Clr Drug Dosing 58.1 ml/min Est GFR ( Amer) 67.8 ml/min Est GFR (Non-Af Amer) 58.5 ml/min BUN/Creatinine Ratio 21.6 H (10-20) Glucose 145 H (70-99(Fasting)) mg/dl POC Glucose 118 H (70-99) mg/dl Estimat Average Glucose mg/dl Hemoglobin A1c (4.5-5.6) % Calcium 9.2 (8.5-10.1) mg/dl Magnesium (1.7-2.4) mg/dl Total Bilirubin 0.9 (0.2-1.0) mg/dl AST 58 H (13-39) U/L ALT 41 (7-52) U/L Alkaline Phosphatase 87 (34-104) U/L Troponin I < 0.03 (0-0.04) ng/ml Total Protein 7.5 (6.0-8.3) gm/dl Albumin 4.5 (3.4-5.0) gm/dl Globulin 3.0 (2.5-4.0) gm/dl Albumin/Globulin Ratio 1.5 (0.9-2) Triglycerides (0-150) mg/dl Cholesterol (0-200) mg/dl LDL Cholesterol, Calc mg/dl VLDL Cholesterol, Calc (0-30) mg/dl HDL Cholesterol mg/dl Cholesterol/HDL Ratio (0-5) Lipase 49 (11-82) U/L Hepatitis C Ab Screen SARS-CoV-2, RNA, NAAT NEGATIVE (NEGATIVE) 09/23/21 Range/Units 15:28 WBC 9.77 (4.8-10.8) K/uL RBC 4.39 (4.2-5.4) M/uL Hgb 14.7 (12.0-16.0) g/dL Hct 42.1 (37-47) % MCV 95.9 (80-100) fL MCH 33.5 (25-34) pg MCHC 34.9 (32-36) g/dL RDW Std Deviation 44.5 (36.4-46.3) fL RDW Coeff of Luis Manuel 12.9 (11.5-14.5) % Plt Count 263 (130-400) K/uL MPV 9.3 (7.4-10.4) fL Immature Gran % (Auto) 0.2 % Neut % (Auto) 74.5 % Lymph % (Auto) 19.7 % [place] % (Auto) 4.9 % Eos % (Auto) 0.5 % Baso % (Auto) 0.2 % Neut # (Auto) 7.28 H (1.4-6.5) K/uL Lymph # (Auto) 1.92 (1.2-3.4) K/uL [place] # (Auto) 0.48 (0.11-0.59) K/uL Eos # (Auto) 0.05 (0-0.5) K/uL Baso # (Auto) 0.02 (0-0.2) K/uL Immature Gran # (Auto) 0.02 (0.00-0.02) K/uL Sodium (136-145) mmol/L Potassium (3.5-5.1) mmol/L Chloride (98-107) mmol/L Carbon Dioxide (21-32) mmol/L Anion Gap (3-11) BUN (6-23) mg/dl Creatinine (0.6-1.2) mg/dl Est Cr Clr Drug Dosing ml/min Est GFR ( Amer) ml/min Est GFR (Non-Af Amer) ml/min BUN/Creatinine Ratio (10-20) Glucose (70-99(Fasting)) mg/dl POC Glucose (70-99) mg/dl Estimat Average Glucose mg/dl Hemoglobin A1c (4.5-5.6) % Calcium (8.5-10.1) mg/dl Magnesium (1.7-2.4) mg/dl Total Bilirubin (0.2-1.0) mg/dl AST (13-39) U/L ALT (7-52) U/L Alkaline Phosphatase (34-104) U/L Troponin I (0-0.04) ng/ml Total Protein (6.0-8.3) gm/dl Albumin (3.4-5.0) gm/dl Globulin (2.5-4.0) gm/dl Albumin/Globulin Ratio (0.9-2) Triglycerides (0-150) mg/dl Cholesterol (0-200) mg/dl LDL Cholesterol, Calc mg/dl VLDL Cholesterol, Calc (0-30) mg/dl HDL Cholesterol mg/dl Cholesterol/HDL Ratio (0-5) Lipase (11-82) U/L Hepatitis C Ab Screen SARS-CoV-2, RNA, NAAT (NEGATIVE)
[2021-09-24] MEDS ORDERED: VITAMIN B COMPLEX TAB PO SCH (09:00)
[2021-09-24] MEDS ORDERED: MELOXICAM 7.5 MG TAB PO SCH (09:00)
[2021-09-24] MEDS ORDERED: ATORVASTATIN 40 MG TAB PO SCH (09:00)
[2021-09-24] MEDS ORDERED: ASPIRIN 81 MG ECTAB PO SCH (09:00)
[2021-09-24] MEDS ORDERED: CITALOPRAM 20 MG TAB PO SCH (09:00)
[2021-09-24] MEDS ORDERED: lisinopril 20 MG TAB PO SCH (09:00)
[2021-09-24] MEDS ORDERED: carvediloL 6.25 MG TAB PO SCH (10:30)
[2021-09-24] MEDS ORDERED: Nursing to Pharmacy Communication SCH (11:45)
[2021-09-24] MEDS ORDERED: INSULIN ASPART PER UNIT SC SCH (12:00)
--- NOTE | 2021-09-24 13:55 | Discharge Summary ---
Date of Service September 24, 2021 Admission HPI Per Admitting Provider This is a 61-year-old female who has significant past medical history of T2DM, HTN, HLD, tobacco abuse, alcohol use who presents to ED after experiencing chest pain since 1330. She states that she presented to [facility] for a mammogram. Prior to mammogram at approximately 1330 she developed shakiness. Being a diabetic she thought maybe it was her blood sugar and staff gave her genesis crackers. This did not improve her symptoms. She then developed left- sided chest heaviness with radiation under both bilateral breasts near the rib cage as well as around to her back. Pain was constant, not made worse with inspiration, associated with initial shortness of breath that is since resolved, not associated with diaphoresis or nausea. She has never experienced similar pain in the past. She does admit to prior history of acid reflux as well as peptic ulcer disease secondary to H. pylori. She does not feel this is similar. Symptoms are not reproduced by movement. She has not walked since the incident so is unsure if exertion makes symptoms worse. She did proceed with the mammogram, but eventually it was stopped due to pain. Pain is currently a 4 out of 10. It improved after initiating IV morphine. Nitro was given in ED and this did not alleviate symptoms. She denies any prior history of heart disease. She denies any fever, chills, sweats, lightheadedness, dizziness, syncope, cough, hemoptysis, nausea, vomiting, abdominal pain, change in bowel or urinary habits. She denies any recent life stressors and does not feel anxious. Mammo was just routine screening. She is a chronic smoker for the past 30 to 40 years. She also drinks 3 to 4 cans of light beer a day. Her father has a history of CAD with bypass in his 70s. In ED patient was tachycardic and hypertensive. She admits to taking her lisinopril today.Her last alcoholic drink was last evening. Her CBC and CMP was generally unremarkable except for sodium 132, glucose 145, AST 58. Her chest CTA was negative for acute PE but did reveal moderate atherosclerosis as well as diffuse emphysema. Chest x-ray was negative for acute disease. Her initial troponin was undetectable and EKG revealed sinus tachycardia but no acute ST or T wave changes. Admission Exam Per Admitting Provider Constitutional: WD/WN, vitals as above, NAD, sitting up in bed, pleasant, conversing easily Head: Normocephalic, Atraumatic Eyes: PERRL, conjunctivae normal, anicteric sclerae ENMT: external ear and nose normal, oropharynx normal Neck: trachea midline, no thyromegaly normal visual inspection Respiratory: normal respiratory effort, lungs clear to auscultation, no wheeze, rales, rhonchi. Normal insp/exp effort, no accessory muscle use Cardiovascular: Tachycardic rate, regular rhythm, no murmur, no edema Vessels: no JVD or carotid bruit Chest: normal inspection of chest , chest pain reproduced when palpating the left upper anterior chest wall, it does not reproduce underneath bilateral breasts on the rib cage Abdomen: normal bowel sounds, soft, nontender, no hepatosplenomegaly Musculoskeletal: no cyanosis or clubbing, extremities motor strength 5/5 Skin: no rashes, warm and dry normal turgor Neurologic: PERRL, EOMI, accommodation nl, no face palsy, no dysarthria CN's II-XI intact bilaterally and moves all extremities Psychiatric: A+Ox3, euthymic affect Lymphatic: no cervical or axillary lymphadenopathy : deferred Principal Diagnosis bronchitis Uncontrolled hypertension Atypical chest pain tobacco use oral thrush Discharge Exam CONSTITUTIONAL: WNWD, vitals as above, generally well-appearing, NAD EYES: normal conjunctivae, no scleral icterus ENT: external ear and nose normal, oropharynx clear, tongue with whitish material which did not fade with swallowing or wiping. NECK: trachea midline RESPIRATORY: clear to auscultation bilaterally, no crackles, rales or wheezes, normal respiratory effort CARDIOVASCULAR: regular rate and rhythm, S1 and 2 heard without murmurs, gallops or rubs, no JVD, no peripheral edema GASTROINTESTINAL: soft, nontender, ND, no guarding MUSCULOSKELETAL: strength 5/5 throughout, head is normocephalic and atraumatic SKIN: warm and dry NEUROLOGIC: CN 2-12 grossly intact, no sensory deficit, normal cognition, normal speech, no tremor , no gross focal deficits. PSYCHIATRIC: alert cooperative and oriented to person, place and time. Euthymic mood, makes good eye contact, language grossly intact, recent and remote memory grossly intact. Discharge Data Allergies Allergy/AdvReac Type Severity Reaction Status Date / Time Penicillins Allergy Unknown UNKNOWN Unverified 09/23/21 17:31 Sulfa (Sulfonamide Allergy Unknown UNKNOWN Unverified 09/23/21 17:31 Antibiotics) tetracycline Allergy Unknown UNKNOWN Unverified 09/23/21 17:31 Consultations 09/23/21 17:33 ED Decision to Admit Stat 09/23/21 19:30 Consult Cardiology Routine Ordered Studies Laboratory Results WBC 6.88 K/uL (4.8-10.8) 09/24/21 03:09 RBC 4.01 M/uL (4.2-5.4) L 09/24/21 03:09 Hgb 13.1 g/dL (12.0-16.0) 09/24/21 03:09 Hct 38.2 % (37-47) 09/24/21 03:09 MCV 95.3 fL (80-100) 09/24/21 03:09 MCH 32.7 pg (25-34) 09/24/21 03:09 MCHC 34.3 g/dL (32-36) 09/24/21 03:09 RDW Std Deviation 44.2 fL (36.4-46.3) 09/24/21 03:09 RDW Coeff of Luis Manuel 12.8 % (11.5-14.5) 09/24/21 03:09 Plt Count 209 K/uL (130-400) 09/24/21 03:09 MPV 8.8 fL (7.4-10.4) 09/24/21 03:09 Immature Gran % (Auto) 0.2 % 09/23/21 15:28 Neut % (Auto) 74.5 % 09/23/21 15:28 Lymph % (Auto) 19.7 % 09/23/21 15:28 Nelson % (Auto) 4.9 % 09/23/21 15:28 Eos % (Auto) 0.5 % 09/23/21 15:28 Baso % (Auto) 0.2 % 09/23/21 15:28 Neut # (Auto) 7.28 K/uL (1.4-6.5) H 09/23/21 15:28 Lymph # (Auto) 1.92 K/uL (1.2-3.4) 09/23/21 15:28 Nelson # (Auto) 0.48 K/uL (0.11-0.59) 09/23/21 15:28 Eos # (Auto) 0.05 K/uL (0-0.5) 09/23/21 15:28 Baso # (Auto) 0.02 K/uL (0-0.2) 09/23/21 15:28 Immature Gran # (Auto) 0.02 K/uL (0.00-0.02) 09/23/21 15:28 Sodium 134 mmol/L (136-145) L 09/24/21 03:09 Potassium 3.5 mmol/L (3.5-5.1) 09/24/21 03:09 Chloride 104 mmol/L (98-107) 09/24/21 03:09 Carbon Dioxide 24 mmol/L (21-32) 09/24/21 03:09 Anion Gap 6 (3-11) 09/24/21 03:09 BUN 19 mg/dl (6-23) 09/24/21 03:09 Creatinine 0.84 mg/dl (0.6-1.2) 09/24/21 03:09 Est Cr Clr Drug Dosing 64.2 ml/min 09/24/21 03:09 Est GFR ( Amer) 85.7 ml/min 09/24/21 03:09 Est GFR (Non-Af Amer) 74.0 ml/min 09/24/21 03:09 BUN/Creatinine Ratio 22.6 (10-20) H 09/24/21 03:09 Glucose 87 mg/dl (70-99(Fasting)) 09/24/21 03:09 POC Glucose 131 mg/dl (70-99) H 09/24/21 11:19 Estimat Average Glucose 126 mg/dl 09/24/21 03:09 Hemoglobin A1c 6.0 % (4.5-5.6) H 09/24/21 03:09 Calcium 8.9 mg/dl (8.5-10.1) 09/24/21 03:09 Magnesium 2.1 mg/dl (1.7-2.4) 09/24/21 03:09 Total Bilirubin 0.9 mg/dl (0.2-1.0) 09/24/21 03:09 AST 38 U/L (13-39) 09/24/21 03:09 ALT 31 U/L (7-52) 09/24/21 03:09 Alkaline Phosphatase 68 U/L (34-104) 09/24/21 03:09 Troponin I < 0.03 ng/ml (0-0.04) 09/24/21 03:09 Total Protein 6.2 gm/dl (6.0-8.3) 09/24/21 03:09 Albumin 3.8 gm/dl (3.4-5.0) 09/24/21 03:09 Globulin 2.4 gm/dl (2.5-4.0) L 09/24/21 03:09 Albumin/Globulin Ratio 1.6 (0.9-2) 09/24/21 03:09 Triglycerides 170 mg/dl (0-150) H 09/24/21 03:09 Cholesterol 126 mg/dl (0-200) 09/24/21 03:09 LDL Cholesterol, Calc 20 mg/dl 09/24/21 03:09 VLDL Cholesterol, Calc 34 mg/dl (0-30) H 09/24/21 03:09 HDL Cholesterol 72 mg/dl 09/24/21 03:09 Cholesterol/HDL Ratio 1.8 (0-5) 09/24/21 03:09 Lipase 49 U/L (11-82) 09/23/21 15:28 Hepatitis C Ab Screen Neg (Neg) 09/24/21 03:09 SARS-CoV-2, RNA, NAAT NEGATIVE (NEGATIVE) 09/23/21 17:57 Impressions Chest X-Ray 09/23/21 15:44 XR chest 1V portable CLINICAL HISTORY: Atypical chest pain TECHNIQUE: Single frontal radiograph of the chest was obtained. Comparison: Comparison is made to chest one view 01/16/2019 FINDINGS: No lines and tubes are seen. Calcified aortic knob is seen. The lungs are clear. No evidence of pleural effusion or pneumothorax. IMPRESSION: No acute chest disease. ACT 112: Negative or not required by law. Electronically signed by: Jordan Ordoñez M.D. 09/23/2021 4:46 PM Chest CTA 09/23/21 15:55 CT angio chest PE protocol CLINICAL HISTORY: PE. Atypical chest pain. TECHNIQUE: Multidetector row helical CT of the chest was performed with angiographic protocol. Coronal and sagittal reformations were obtained. Coronal and sagittal MIPS were obtained from the axial data set and were submitted for review. Automated dose lowering techniques and/or adjustment according to patient size were utilized for this exam. Comparison: None available at the time of this dictation. FINDINGS: Lungs and pleura: Diffuse centrilobular emphysema is seen most prominent in the upper lobes. Heart and pericardium: Heart size is normal. No pericardial effusion. Vessels: Moderate atherosclerotic changes in the aorta and coronary arteries. No evidence of pulmonary embolism. Mediastinum and sara: Unremarkable. Chest wall and lower neck: Subcentimeter thyroid nodules are noted which do not require follow-up by ACR criteria. Abdomen: Unremarkable. Bones: Degenerative changes in the thoracic spine. IMPRESSION: 1. No evidence of pulmonary embolism. 2. Moderate atherosclerosis. Diffuse emphysema. ACT 112: Negative or not required by law. Electronically signed by: Jordan Ordoñez M.D. 09/23/2021 5:12 PM Hospital Course (1) Chest pain: (2) Diabetes: (3) Hyperlipidemia: (4) HTN (hypertension): This is a 61-year-old female who has significant past medical history of T2DM, HTN, HLD, tobacco abuse, alcohol use who presents to ED after experiencing chest pain for one day. Atypical chest pain Acute bronchitis Oral candidiasis/thrush Admit to telemetry Patient with significant risk factors including HTN, HLD, T2DM, chronic tobacco and alcohol use Chest pain is still present, initial troponin negative, EKG without ST or T wave changes Pain was reproducible in left upper anterior chest wall, possible muscul oskeletal component vs uncontrolled HTN vs ACS CTA negative for PE serial troponin was cycled and negative echocardiogram revealed no abnormal wall motion to suggest ACS A1c was 6.0 With her recent reports of respiratory symptoms, she was given a zpak Nystatin swish and swallow given for thrush noted on exam Additional carvedilol, increased lipitor and daily aspirin was prescribed by cardiology, who did not feel this presentation of chest pain was cardiac in nature. However, these medication adjustments were made in light of her risk factors for CAD and coronary artery calcifications seen on chest CT. Outpatient stress test may be considered. HTN Blood pressure elevated to 183/96 on arrival. Blood pressure was treated with parenteral labetalol initially and she was continued on her home lisinopril. HLD Continued on statin per home regimen. T2DM, well controlled A1c 6.0 here. On NovoLog with meals as outpatient NovoLog per protocol while in the hospital. Tobacco abuse As active smoking leads to increased risk of heart disease, smoking cessation was encouraged. Alcohol use Drinks 3-4 light beers daily Could possibly be culprit of initial sinus tachycardia AWSS protocol Daily thiamine and folic acid At time of discharge she was oxygenating well on room air, was hemodynamically stable and afebrile and was tolerating PO. She was mentating and ambulating at baseline and was discharged in stable condition with close primary care followup recommended. DO [facility] Hospitalist Total Time Total Time Spent Total Time Spent (In Minutes): 60 Discharge Plan Discharge Items Patient Disposition: Home - Self-Care Reason For Visit: CHEST PAIN Discharge Diagnosis: bronchitis Uncontrolled hypertension Atypical chest pain tobacco use oral thrush Condition on Discharge: Good Activity: Resume your previous activity Non-emergency contact: Primary Care Provider Call non-emergency contact if: you have any medication questions, your symptoms worsen, your pain is not controlled, your pain is worsening, your pain is unusual for you, your pain is concerning for you and you have a fever Follow-up/Referrals: Abigail Moran DO [Primary Care Provider] - (Date & Time 09/29/2021 10:20 AM Provider Abigail Moran DO Department [facility] ) Diet: Carb Consistent or DM2 Addtl Attending Provider Instructions: Please take all medications as instructed on discharge list below. Your cough and phlegm may be a result of an acute bronchitis. There was no pneumonia seen on your chest imaging. You were found to have oral thrush and have been put on a short course of antifungal therapy as a result. You have been placed on additional medication including carvedilol, increased Lipitor to 80mg daily, and baby aspirin. Please follow-up with your primary care provider as instructed above to discuss medication changes and how you are doing since going home from the hospital. As we discussed, smoking cessation is very important for your health. To help in this effort please continue with the nicotine gum for cravings. Please continue to work with your primary care provider in this effort. It was a pleasure taking care of you! Please call if you have any questions or problems. You can reach a [facility] hospitalist on duty at [facility] 24 hours a day by calling [phone]. Take care of yourself. DO Kavon [facility] Hospitalist Pending Studies at Discharge: No Stand-Alone Forms: My [facility] Medications and DC Order Prescriptions: New atorvastatin [Lipitor] 80 mg tablet 80 mg PO DAILY Qty: 30 RF: 0 carvedilol 6.25 mg Tablet 6.25 mg PO BID Qty: 60 RF: 0 aspirin 81 mg Tablet,Delayed Release (Dr/Ec) 81 mg PO QAM Qty: 90 RF: 0 nystatin 100,000 unit/mL suspension 5 ml PO QID Qty: 200 RF: 0 nicotine (polacrilex) 2 mg gum 2 mg buccal Q8H PRN (Reason: nicotine cravings) Qty: 40 RF: 1 azithromycin 250 mg tablet See Rx Instructions .ROUTE .COMPLEX Qty: 6 RF: 0 Continued citalopram 10 mg tablet 10 mg PO DAILY RF: 0 meloxicam 15 mg tablet 15 mg PO DAILY RF: 0 acetaminophen [Tylenol Extra Strength] 500 mg Tablet 1,000 mg PO Q6H PRN (Reason: Pain) RF: 0 insulin aspart U-100 [Novolog Flexpen U-100 Insulin] 100 unit/mL (3 mL) insulin pen 0 unit SUBCUT TIDM RF: 0 vitamin B complex Capsule 1 cap PO DAILY RF: 0 Changed lisinopril 10 mg tablet 20 mg PO DAILY Qty: 60 RF: 0 Discontinued atorvastatin 40 mg tablet 40 mg PO DAILY RF: 0 Discharge Orders: Discharge Order (Routine); Ordered 09/24/21 Ordered By: Roxanna Brown/Other Patient Handouts: Managing Type 2 Diabetes Admission Data Admit Date/Time: 09/23/21 17:42 Attending Provider: Roxanna Cohen Admit Provider: Jeremiah Styles Primary Care Provider: Abigail Moran Other Providers: Jeremiah Styles ; Gabe Sneed Other Interventions: Discharge Summary Assessment (RN) Last Done: 09/24/21 14:10
--- NOTE | 2021-09-24 18:58 | Electrocardiogram Report ---
Test Reason : Blood Pressure : / mmHG Vent. Rate : 084 BPM Atrial Rate : 084 BPM P-R Int : 144 ms QRS Dur : 070 ms QT Int : 378 ms P-R-T Axes : 078 052 062 degrees QTc Int : 446 ms Normal sinus rhythm Normal ECG When compared with ECG of 23-SEP-2021 15:40, No significant change was found Confirmed by Devon Lemus ([id number]) on 09/24/2021 6:58:12 PM Referred By: REFERRED SELF Confirmed By:Reese Lemus
[2021-09-25] MEDS ORDERED: ATORVASTATIN 40 MG TAB PO SCH (09:00)
== END 2021-09-24 15:37 | disposition home or self-care (01) ==
LOC: 2E 15:35 → ED 15:35 → SUATTDRO 17:42 → 2E 19:38

== ENCOUNTER 2023-09-29 07:33 | Observation (INO) ==
--- NOTE | 2023-09-07 14:50 | PAT Medication Instructions ---
Medication Instructions Date of Service September 07, 2023 Home Medications Medication Instructions Recorded aspirin 81 mg tablet,delayed 81 mg PO QAM #90 tabs 09/24/21 release carvedilol 6.25 mg tablet 6.25 mg PO BID #60 tabs 09/24/21 acetaminophen 500 mg tablet (Tylenol Extra Strength) 1,000 mg PO Q6H PRN Pain citalopram 10 mg tablet 10 mg PO QAM insulin aspart U-100 100 unit/mL (3 mL) subcutaneous pen (Novolog FlexPen U-100 Insulin aspart) 1 sliding scale dose subcut TIDM meloxicam 15 mg tablet 15 mg PO QAM vitamin B complex 1 cap PO QAM aspirin 81 mg tablet,delayed release 81 mg PO QAM carvedilol 6.25 mg tablet 6.25 mg PO BID atorvastatin 80 mg tablet (Lipitor) 80 mg PO QPM cholecalciferol (vitamin D3) 25 mcg (1,000 unit) tablet (Vitamin D3) 25 mcg PO QAM lisinopril 10 mg tablet 10 mg PO QAM magnesium 1 tab PO QAM multivitamin 1 tab PO QAM fluticasone furoate 100 mcg-vilanterol 25 mcg/dose inhalation powder (Breo Ellipta) 1 inh inhalation QAM diphenhydramine HCl 25 mg tablet (Benadryl Allergy) 25 mg PO DAILY PRN Allergy Symptoms cetirizine 10 mg tablet 10 mg PO QAM ASK your surgeon for instructions meloxicam 15 mg tablet 15 mg PO QAM DO NOT take the morning of surgery insulin aspart U-100 100 unit/mL (3 mL) subcutaneous pen (Novolog FlexPen U-100 Insulin aspart) 1 sliding scale dose subcut TIDM vitamin B complex 1 cap PO QAM cholecalciferol (vitamin D3) 25 mcg (1,000 unit) tablet (Vitamin D3) 25 mcg PO QAM lisinopril 10 mg tablet 10 mg PO QAM magnesium 1 tab PO QAM multivitamin 1 tab PO QAM diphenhydramine HCl 25 mg tablet (Benadryl Allergy) 25 mg PO DAILY PRN Allergy Symptoms cetirizine 10 mg tablet 10 mg PO QAM Take morning of surgery With a small sip of water, OTHERWISE NOTHING TO EAT OR DRINK AFTER MIDNIGHT: acetaminophen 500 mg tablet (Tylenol Extra Strength) 1,000 mg PO Q6H PRN Pain (if needed) citalopram 10 mg tablet 10 mg PO QAM aspirin 81 mg tablet,delayed release 81 mg PO QAM (unless surgeon directed otherwise) carvedilol 6.25 mg tablet 6.25 mg PO BID fluticasone furoate 100 mcg-vilanterol 25 mcg/dose inhalation powder (Breo Ellipta) 1 inh inhalation QAM Take evening before surgery acetaminophen 500 mg tablet (Tylenol Extra Strength) 1,000 mg PO Q6H PRN Pain (if needed) insulin aspart U-100 100 unit/mL (3 mL) subcutaneous pen (Novolog FlexPen U-100 Insulin aspart) 1 sliding scale dose subcut TIDM carvedilol 6.25 mg tablet 6.25 mg PO BID atorvastatin 80 mg tablet (Lipitor) 80 mg PO QPM cholecalciferol (vitamin D3) 25 mcg (1,000 unit) tablet (Vitamin D3) 25 mcg PO QAM diphenhydramine HCl 25 mg tablet (Benadryl Allergy) 25 mg PO DAILY PRN Allergy Symptoms (if needed) Other Notes If you have any questions please call us at [phone] or [phone] or [phone] or [phone]
--- NOTE | 2023-09-13 12:50 | Anesthesiology Consultation ---
Date of Service September 13, 2023 Assessment & Plan (1) Encounter for pre-operative examination: - Check BSG AM DOS - Infectious disease screening: Per assessment on 09/13/23: No known infectious disease contacts or current infectious disease symptoms. No noted recent Covid positive test result. - Outpatient joint assessment: Pt currently scheduled for inpatient pathway. If surgeon requests review for outpatient joint pathway, patient is an acceptable candidate for outpatient joint program from anesthesia standpoint pending surgeon's office assessment that patient is motivated, has good support and completes [facility] Day Joint Program preop requirements. - S/P Left reverse TSA (09/26/22): Grade 1 view, MAC#3, ETT + regional at [facility] - Neurology visit (02/23/2007): "I reviewed an MRI of the brain which shows some non-specific lesions, sub-cortically bilaterally, very little near the ventricles and none in the brainstem or cerebellum. I think technically the scan does not qualify as multiple sclerosis. 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 I think that she probably had a virus back 2 months ago which caused an encephalopathy, and I think that was what we are seeing on the MRI scan. She does not really have a risk factor for stroke. Again the story really does not suggest multiple sclerosis and the MRI findings technically do not qualify for multiple sclerosis. 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 She seems to be getting better. She reports that she is. She has a little bit of tremor in the head, a little bit in the hands. Cognition is normal. Speech is clear without dysarthria. She has conjugate full eye movements. No nystagmus. No ptosis. No ataxia. No weakness in the limbs. We are going to re-image her brain in a year for re-assurance sake to make sure that nothing is progressing." > Patient did not have subsequent brain MRI per extensive review of available records. Patient seen at [facility] 09/14/23- Denies current neurologic conditions/issues. Reviewed with Dr. Serrato- does not feel that further neurologic evaluation and/or testing needed prior to surgery from his perspective. At anesthesiologist discretion regarding ultimate anesthesia type decision DOS. Chart Review Chart Review: Acceptable Risk for Surgery and Patient seen in Pre Admission Testing History Surgery Operation Date: 09/29/23 10:00 Proposed Procedures p Left Total Hip Arthroplasty Sam - Wong Trejo, Height/Weight Height: 5 ft 6 in Weight: 69.6 kg Allergies Allergy/AdvReac Type Severity Reaction Status Date / Time tetracycline Allergy Severe Throat Verified 09/07/23 13:19 swelling Sulfa (Sulfonamide Allergy Intermediate Hives Verified 09/07/23 13:19 Antibiotics) Medications Home Medications Medication Instructions Recorded Confirmed Last Taken acetaminophen 500 mg tablet 1,000 mg PO Q6H PRN Pain 09/23/21 09/07/23 09/26/22 07:00 (Tylenol Extra Strength) citalopram 10 mg tablet 10 mg PO QAM 09/23/21 09/07/23 09/25/22 09:00 insulin aspart U-100 100 unit/mL 1 sliding scale dose subcut TIDM 09/23/21 09/07/23 09/25/22 21:00 (3 mL) subcutaneous pen (Novolog 2 units FlexPen U-100 Insulin aspart) meloxicam 15 mg tablet 15 mg PO QAM 09/23/21 09/07/23 09/25/22 09:00 vitamin B complex 1 cap PO QAM 09/23/21 09/07/23 1 Month Ago ~08/29/22 aspirin 81 mg tablet,delayed 81 mg PO QAM #90 tabs 09/24/21 09/07/23 1 Week Ago release ~09/19/22 carvedilol 6.25 mg tablet 6.25 mg PO BID #60 tabs 09/24/21 09/07/23 09/26/22 07:00 atorvastatin 80 mg tablet (Lipitor) 80 mg PO QPM 09/01/22 09/07/23 09/25/22 22:00 cholecalciferol (vitamin D3) 25 25 mcg PO QAM 09/01/22 09/07/23 09/25/22 09:00 mcg (1,000 unit) tablet (Vitamin D3) lisinopril 10 mg tablet 10 mg PO QAM 09/01/22 09/07/23 09/25/22 09:00 magnesium 1 tab PO QAM 09/01/22 09/07/23 09/25/22 09:00 multivitamin 1 tab PO QAM 09/01/22 09/07/23 1 Week Ago ~02/27/23 fluticasone furoate 100 1 inh inhalation QAM 09/26/22 09/07/23 09/26/22 07:30 mcg-vilanterol 25 mcg/dose inhalation powder (Breo Ellipta) diphenhydramine HCl 25 mg tablet 25 mg PO DAILY PRN Allergy Symptoms 01/30/23 09/07/23 Unknown (Benadryl Allergy) cetirizine 10 mg tablet 10 mg PO QAM 09/07/23 09/07/23 Unknown Wheeled Walker #1 ea 09/13/23 09/13/23 Unknown Past Medical History Medical History Anxiety Chronic hyponatremia Baseline sodium in the low 130s over past 1+ year PCP aware/monitoring Coronary artery calcification seen on CAT scan Noted during 09/2021 [facility] admission Diverticulosis No hx of diverticulitis DM type 2 (diabetes mellitus, type 2) IDDM HTN (hypertension) Hx of gastric ulcer years ago, resolved Hyperlipidemia Left hip pain Osteoarthritis Exercise / Class Metabolic Activity II 4-5 Yardwork/Stairs/Walk up hill Past Family History Family History Father , 70s Coronary heart disease Hx of CABG Mother Colorectal cancer Other No family history of adverse response to anesthesia Past Surgical History Surgical History History of colonoscopy History of esophagogastroduodenoscopy (EGD) History of lumpectomy of left breast benign History of lumpectomy of right breast benign History of tooth extraction S/P tonsillectomy Status post reverse total replacement of left shoulder Left reverse TSA (09/26/22): Grade 1 view, MAC#3, ETT + regional at [facility] Past Anesthesia History No Hx of Anesthesia Complications and No Family Hx of Anesthesia Complications History of PONV No Hx of PONV and No Hx of Motion Sickness Social History Smoking Status: Former smoker tobacco type: cigarettes Do You Dip or Chew Tobacco: No Smoking End Date: Quit 09/2022 Hx Alcohol Use: Yes Alcohol type: beer and hard liquor alcohol intake frequency: 3 or more drinks per day (2-3 drinks/day (typically beer, occasional jd)) Hx Substance Use: No substance use type: does not use Review of Systems Patient denies chest pain, shortness of breath, dyspnea on exertion, fever, chills, cough, wheezing, palpitations. Physical Exam Vital Signs BP 115/69 P 83 TEMP 98.2 SP02 96%RA RESP 18 Physical Full cervical extension range of motion. Full TMJ range of motion. TMD 3.5 finger breaths Mallampati Score 1 Dentition: edentulous Lungs: clear throughout to auscultation Cardiac: regular rate and rhythm, no murmurs noted Spine: normal Carotid arteries: negative bruit Extremities: no LE edema Lab Results Anesthesia Preop Results Results Anesthesia Widget: WBC 7.65 K/ul (4.8-10.8) 09/13/23 Hgb 11.4 g/dl (12.0-16.0) L 09/13/23 Hct 34.7 % (37.0-47.0) L 09/13/23 Plt 336 K/uL (130-400) 09/13/23 Na 133 mmol/L (136-145) L 09/13/23 K 4.7 mmol/L (3.5-5.1) 09/13/23 Cl 99 mmol/L (98-107) 09/13/23 CO2 26 mmol/L (21-32) 09/13/23 BUN 21 mg/dl (6-23) 09/13/23 Creat 0.89 mg/dl (0.6-1.2) 09/13/23 Glucose Level 106 mg/dl (70-99(Fasting)) H 09/13/23 PT 10.2 Seconds (9.0-12.0) 09/13/23 PTT 26 Seconds (21-31) 09/13/23 INR 0.9 (0.9-1.1) 09/13/23 HA1c 5.9 % (4.5-5.6) H 09/13/23 Blood Type A Positive 09/13/23 Antibody Screen NEGATIVE 09/13/23 Testing Electrocardiogram Date: 09/13/23 Findings: + NSR @ (86) Chest X-Ray Date: 09/13/23 FINDINGS: Left shoulder arthroplasty is seen. Calcified aortic knob is seen. The lungs are clear. No evidence of pleural effusion or pneumothorax. IMPRESSION: No acute chest disease. Echocardiogram Date: 09/24/21 EF: 65-70% LV Function: normal RWMA: + none Other Findings: + diastolic dysfunction (Grade I ) Valvular Disease: + no significant valvular disease LV is hyperdynamic
[~2023-09-29 07:33] MED LIST: BUPIVACAINE 0.5 % 5 MG/1 ML PF 10ML VIAL ONE; MIDAZOLAM HCL 1 MG/ML 2ML VIAL ONE; PROPOFOL IV EMULSION 10 MG/ML 20 ML VIAL IV ONE
--- NOTE | 2023-09-29 08:12 | History & Physical Bridge Note ---
Date of Service September 29, 2023 History & Physical Bridge Note I have examined the patient, reviewed the History & Physical and in the interval since the performance of the History & Physical I have noted the following changes of clinical significance: no changes noted
[2023-09-29] MEDS: LR 500ML BOLUS, THEN 15ML/HR IV SCH (08:14)
[2023-09-29] MEDS ORDERED: PROMETHAZINE HCL 6.25 MG in SODIUM CHLORIDE 0.9% 50 ML IV PRN (08:15)
[2023-09-29] MEDS ORDERED: ePHEDrine sulfate 50 MG/ML AMP IV PRN (08:15)
[2023-09-29] MEDS ORDERED: ATROPINE SULFATE 0.1 MG/ML 10ML SYR IV PRN (08:15)
[2023-09-29] MEDS ORDERED: HYDROmorphone INJ 1 MG/ML SYRINGE IV PRN (08:15)
[2023-09-29] MEDS: GABAPENTIN 300 MG CAP PO SCH (08:26)
[2023-09-29] MEDS: FAMOTIDINE 20 MG TAB PO SCH (08:26)
[2023-09-29] MEDS: ACETAMINOPHEN 500 MG TAB PO SCH ×2 (08:26→13:22)
[2023-09-29] MEDS: dexAMETHasone**PF** 10 MG/ML VIAL IV SCH (08:26)
[2023-09-29] MEDS: TRANEXAMIC ACID 1,000 MG **IV Pre-op IV SCH (09:00)
[2023-09-29] MEDS: LR 60ML/HR IV SCH (09:05)
[2023-09-29] MEDS: ceFAZolin 2000MG 2,000 MG/15 ML SYR IV SCH ×2 (09:15→16:53)
[2023-09-29] MEDS ORDERED: ePHEDrine sulfate 50 MG/5 ML SYR ONE (09:42)
[2023-09-29] MEDS ORDERED: PHENYLEPHRINE 100MCG/ML 10ML SYR IV ONE (09:42)
[2023-09-29] MEDS ORDERED: fentaNYL citrate PF 100 MCG/2 ML VIAL ONE (09:47)
[2023-09-29] MEDS: ROPIV 0.5% 246mg, Ketorolac 30mg, EPINEPHrine 0.5mg in NSS INFIL SCH (09:48)
[2023-09-29] MEDS: ORTHO JOINT ANESTHETIC ONE (09:49)
[2023-09-29] MEDS: TRANEXAMIC ACID 1,000 MG **IV Intra-op IV SCH (10:30)
--- NOTE | 2023-09-29 10:34 | Fluoroscopy Report ---
INTRAOPERATIVE RADIOGRAPH CLINICAL HISTORY: Left hip arthroplasty. Fluoro time: 13 seconds Ka,r: 1.10 mGy FINDINGS: A single spot fluoroscopic view of the left hip is correlated with radiographs dated . A bipolar left hip arthroplasty is in near anatomic alignment. A single cortical lag screw is se en transfixing the acetabular cup. The hardware appears intact. There is no evidence of fracture on t his fluoroscopic image. IMPRESSION: Intraoperative image from a left hip arthroplasty procedure as above. Electronically signed by: Bc Pace M.D. 09/29/2023 10:33 AM
--- NOTE | 2023-09-29 10:36 | Operative Report ---
PG Post Operative Report Pre & Post Diagnosis Operation Date: 09/29/23 09:00 Pre-Op Diagnosis: Left Hip Degenerative Joint Disease Post-Op Diagnosis: Left Hip Degenerative Joint Disease I identified the patient and participated in the time-out.: Yes Procedure Operation Date: 09/29/23 09:00 Actual Procedures p Left Total Hip Arthroplasty Anterior(Left) - Wong Trejo DO Surgeon Wong Trejo DO Contract Accountant Wong Mason PA-C Estimated Blood Loss 200 Findings Consistent with Post-Op Diagnosis Specimens Left femoral head Description of Procedure Implants used I used a Zimmer[employer]omet total hip arthroplasty system with a size 2 high offset Avenir Complete stem, a 46 mm G7 cup with a 25mm screw, an E1 polyethylene li ner, a 32 mm ceramic head with a 0 neck. [place] arrived at the hospital for the above procedure. She was seen in the preoperative holding area and the operative extremity was identified and signed. She was given a spinal anesthetic, a preoperative antibiotic, and TXA. She was then taken back to the operating room and laid on the table in the supine position. She was given basic sedation. The operative leg was secured to a Puristst leg positioner. The hip was then prepped and draped in sterile fashion. A timeout was done and the patient and the operative extremity was properly identified. An anterior approach was used. Dissection was taken down through the fascia and the tensor muscle belly was retracted laterally and the rectus was retracted medially. The circumflex vessels were identified and ligated. The capsule was then incised and tagged for later repair. The femoral neck was then cut and the femoral head was removed. The acetabulum was exposed. Time was spent doing a complete circumferential labral release. Sequential reaming of the acetabulum up to a size 45 reamer was done. Final reamings were done under fluoroscopy to ensure appropriate version. A Biomet 46 mm G7 cup was then impacted into place. A single 25 mm screw was placed. The E1 polyethylene liner was then snapped into place. Surrounding soft tissues were then injected with 100 cc of an orthopedic pain control cocktail. The proximal femur was then exposed. Sequential broaching up to a size 2 broach was done. Off that broach a size 32 head with a 0 neck was trialed. The hip was reduced and fluoroscopic images showed anatomic alignment of the implants in acceptable length. The broach was removed. The final size 2 Avenir Complete stem was then impacted into place. A ceramic 32 mm head with a 0 neck was then impacted onto the stem and the hip was reduced. Final fluoroscopic images showed anatomic alignment of the hip. The capsule was then closed with #1 Vicryl suture. A dilute betadyne lavage was then done for 3 minutes. The joint was then irrigated with normal saline solution. The fascia was closed with #1 PDS suture. Skin was closed with 2-0 Vicryl, kellie, and a Silverlon dressing. She was then transferred to a hospital bed and taken to the post anesthesia care unit in stable condition. She tolerated the procedure well. Wong Mason PA-C, was present for the entire procedure. He was critical for patient positioning, prepping, draping, retraction exposure, wound closure and application of sterile dressing. I attest to the content of the Intraoperative Record and any orders documented therein. Any exceptions are noted below.
--- NOTE | 2023-09-29 11:29 | XRay Report ---
XR hip 1V LT w pelvis CLINICAL HISTORY: IN PACU - Post Surgical TECHNIQUE: 1 view of the left hip and single frontal view of the pelvis were obtained. Comparison: Comparison is made to hip radiograph 12/02/2015 FINDINGS: Patient is status post total hip arthroplasty with expected postsurgical changes including soft tissu e swelling and subcutaneous emphysema. IMPRESSION: Expected postoperative appearance status post placement of total hip arthroplasty. ACT 112: Negative or not required by law. Electronically signed by: Jordan Ordoñez M.D. 09/29/2023 11:27 AM
[2023-09-29] MEDS ORDERED: ONDANSETRON INJ 2 MG/ML 2 ML VIAL IV PRN (11:51)
[2023-09-29] MEDS ORDERED: bisacodyL 10 MG SUPP PR PRN (11:51)
[2023-09-29] MEDS ORDERED: METOCLOPRAMIDE HCL INJ 5 MG/ML 2 ML VIAL IV PRN (11:51)
[2023-09-29] MEDS ORDERED: PHARMACY GLYCEMIC MGMT CONSULT PRN (11:51)
[2023-09-29] MEDS ORDERED: HYDROmorphone INJ 0.5 MG/0.5 ML SYR IV PRN (11:51)
[2023-09-29] MEDS ORDERED: MAGNESIUM HYDROXIDE SUSP 30 ML UDC PO PRN (11:51)
[2023-09-29] MEDS ORDERED: NALOXONE HCL 0.4 MG/1 ML VIAL/CARP IV PRN (11:51)
[2023-09-29] MEDS ORDERED: GLUCOSE 10 TAB/TUBE PO PRN (12:30)
[2023-09-29] MEDS ORDERED: GLUCOSE 40% GEL 15 GM TUBE PO PRN (12:30)
[2023-09-29] MEDS ORDERED: CARBOHYDRATES FOR HYPOGLYCEMIA PO PRN (12:30)
[2023-09-29] MEDS ORDERED: DEXTROSE 50% 50 ML SYRINGE IV PRN (12:30)
[2023-09-29] MEDS ORDERED: GLUCAGON FOR INJ 1 MG VIAL IM PRN (12:30)
[2023-09-29] MEDS: SODIUM CHLORIDE 0.9% 1,000 ML IV SCH (12:41)
[2023-09-29] MEDS: KETOROLAC TROMETHAMINE 15 MG/ML VIAL IV SCH (12:41)
--- NOTE | 2023-09-29 13:18 | Anesthesiology Progress Note ---
Date of Service September 29, 2023 Anesthesia Post Procedure Vital Signs Vital Signs: Temp Pulse Pulse Pulse Resp BP BP 09/29/23 12:35 73 16 169/77 H 09/29/23 12:09 36.5 C 82 16 168/80 H 09/29/23 11:40 36.5 C 89 16 157/81 H 09/29/23 11:25 36.4 C L 81 16 145/79 H 09/29/23 11:15 81 14 139/75 09/29/23 11:05 79 20 138/72 09/29/23 10:55 75 18 143/77 H 09/29/23 10:49 36.4 C L 78 14 137/77 09/29/23 08:15 36.8 C 78 17 122/65 Pulse Ox O2 Del Method O2 Flow Rate 09/29/23 12:35 96 Room Air 09/29/23 12:09 96 Room Air 09/29/23 11:40 100 Room Air 09/29/23 11:25 96 Room Air 09/29/23 11:15 100 Nasal Cannula 2 09/29/23 11:05 99 Nasal Cannula 2 09/29/23 10:55 99 Nasal Cannula 3 09/29/23 10:49 98 Nasal Cannula 3 09/29/23 08:15 94 Room Air Pain Intensity Left Hip: Pain Intensity: 5 Transfer of Care Handoff Completed per policy Notes Mental Status: alert / awake / arousable and participated in evaluation Nausea / Vomiting: adequately controlled Pain: adequately controlled Airway Patency, RR, SpO2: stable & adequate BP & HR: stable & adequate Hydration State: stable & adequate Neuraxial Anesthesia: was administered and sensory block is resolving Anesthetic Complications: no major complications apparent and Pt Satisfied with anesthetic care
[2023-09-29] MEDS: LANTUS PER UNIT CHARGE SC ONE ×2 (13:28→21:17)
[2023-09-29] MEDS: INSULIN ASPART PER UNIT CHARGE SC SCH (13:28)
--- NOTE | 2023-09-29 14:08 | Pharmacy Report ---
Pharmacy Glycemic Short Note 2 - Date of Service September 29, 2023 - Glycemic Short BSG Results (Last 24 hours): 09/29/23 09/29/23 09/29/23 08:12 10:53 11:49 POC Glucose 154 H 179 H 158 H OUTPATIENT ANTIDIABETIC REGIMEN: * Insulin aspart TIDM * A1c 5.9% 09/13/23 ASSESSMENT: * Patient admitted post Left total hip arthroplasty, received 10 mg of IV dexamethasone preop * Appears to have good outpatient glycemic control- will give ~weight based stress of 1 lantus and stress of 3 novolog d/t steroid us * Overnight checks- monitor for adjustments PLAN FOR INPATIENT GLYCEMIC CONTROL: * Hold outpatient oral diabetes medications * Basal insulin * Lantus 15 units SQ x1 * Bolus insulin * NovoLog per scale ACHS or Q6hrs while NPO * Goal Range: Low 110 mg/dL - High 140 mg/dL * Correction Factor: 25 mg/dL/unit * Nutritional / Prandial insulin per carb ratio of 1 unit per 8 grams CHO consumed
[2023-09-29] MEDS: SODIUM CHLORIDE 0.65% NA SOLN 45 ML (OCEAN) ONE (14:46)
--- OUTSIDE RECORDS SUMMARY | 2023-09-29 15:37 | External Medical Summary | Summary of Care ---
Author Name Unknown Organization [facility] Address [address] [place] [address] Phone [phone] Care Team Providers Care Airplane Technician Name Role Phone Lupe Kirby MD Primary Care Provider [phone] Reason for Visit * Reason Onset Date Comments Health Maintenance 09/13/2023 Encounter Details Date Type Department Care Team (Late st Contact Info) Description 09/13/2023 Telephone [facility] [place] [address] [place] [facility] [place] [address] Lupe Kirby MD [address] [place] [address] Health Maintenance Allergies Active Allergy Reactions Criticality Noted Date Comments Pollen 12/31/2015 Sulfa Antibiotics Hives 03/07/2013 Tetracycline Hcl Edema airway 12/15/2006 documented as of this encounter (statuses as of 09/13/2023) Medications Medication Sig Dispensed Refills Start Date End Date Status VITAMIN D 400 UNITS PO TABS one pill each day 0 Active MULTI FOR HER 50+ PO CAPS one pill each day 0 Active BENADRYL 25 MG PO TABS one pill each day as needed 0 Active acetaminophen (TYLENOL) 500 MG Tablet Take 1 Tablet by mouth every 6 hours as needed for Pain. 0 Active Aspirin 81 MG TabletIndications:Typ e 2 diabetes mellitus with hemoglobin A1c goal of less than 7.0% ([facility]) Take 1 Tab by mouth daily. 30 Tab 0 03/19/2018 Active Magnesium 400 MG Oral Capsule Take 1 Capsule by mouth in the morning. 0 Active Pen [place] 1/2" 29G X 12MMIndications:Type 2 diabetes mellitus with hemoglobin A1c goal of less than 7.0% ([facility]) Use 3 times a day with insulin pen E11.9 100 Each 5 01/10/2022 Active Anoro Ellipta 62.5-25 MCG/ACT Inhalation Aerosol Powder Breath Activated (umeclidinium-vilante rol) Inhale 1 Puff by mouth in the morning. 30 Each 11 09/08/2022 Active NovoLOG FlexPen 100 UNIT/ML Subcutaneous Solution Pen-injector (insulin aspart)Indications:Ty pe 2 diabetes mellitus with hemoglobin A1c goal of less than 7.0% ([facility]) INJECT 3 TO 4 UNITS UNITS UNDER THE SKIN THREE TIMES A DAY WITH MEALS. DAILY TOTAL 10 UNITS 15 mL 3 09/27/2022 Active Citalopram Hydrobromide 10 MG Oral Tablet (CeleXA)Indications:A nxiety Take 1 Tablet by mouth in the morning. 90 Tablet 3 10/31/2022 Active Atorvastatin Calcium 80 MG Oral Tablet (Lipitor) Take 1 Tablet by mouth every evening. 90 Tablet 3 12/21/2022 Active Cetirizine HCl 10 MG Oral Tablet (ZyrTEC) TAKE 1 TABLET BY MOUTH EVERY MORNING 90 Tablet 1 05/28/2023 Active Ztiiudcj-Hqoxpnfqh-Fe xameth 3.5-33846-7.1 Ophthalmic Suspension (Maxitrol)Indications :Serous conjunctivitis of left eye Instill 2 Drops into the left eye in the morning and 2 Drops at noon and 2 Drops in the evening and 2 Drops before bedtime. 5 mL 1 05/30/2023 Active Fluticasone Propionate 50 MCG/ACT Nasal Suspension (Flonase) Administer 2 Sprays into each nostril in the morning. 16 g 1 06/08/2023 Active Lisinopril 10 MG Oral Tablet (Prinivil)Indications :HTN, goal below 140/90 TAKE 1 TABLET BY MOUTH EVERY MORNING 90 Tablet 1 07/01/2023 Active Meloxicam 15 MG Oral Tablet (Mobic)Indications:Hi p pain, left,Chronic pain of right knee TAKE 1 TABLET BY MOUTH EVERY MORNING FOR PAIN 90 Tablet 1 07/01/2023 Active Carvedilol 6.25 MG Oral Tablet (Coreg) TAKE 1 TABLET BY MOUTH TWICE DAILY EVERY MORNING AND AT BEDTIME 180 Tablet 1 07/01/2023 Active documented as of this encounter (statuses as of 09/13/2023) Active Problems Problem Noted Date Diagnosed Date Primary osteoarthritis of left hip 06/08/2023 COPD, group A, by GOLD 2017 classification 01/02 Overview: Per COPD GOLD Classification Status post replacement of left shoulder joint 0 12/06/2022 Complex sclerosing lesion of left breast 022 HTN, goal below 140/90 03/29/2018 Current use of insulin 03/29/2018 Type 2 diabetes mellitus wit h hemoglobin A1c goal of less than 7.0% 02/10/2016 History of smoking 02/10/2016 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 documented as of this encounter (statuses as of 09/13/2023) Resolved Problems Problem Noted Date Diagnosed Date Resolved Date COPD, mild 09/08/2022 01/05/2023 Overview: Per COPD GOLD Classification documented as of this encounter (statuses as of 09/13/2023) Immunizations Name Administration Dates Next Due DTaP Dipth/Tet/Acell Pertussis (Infanrix), Peds 06/23/2007 Pneumococcal Conjugate Vacci ne, 20-valent ([id number]) 01/10/2022 Pneumococcal Polysaccharide PPV23 (Pneumovax) 12/04/2013,02/11/2013 RSV Vac., Bivalent, Perfusio n F, Pf,0.5 Ml (Abrysvo) 06/08/2023 Seasonal Influenza, PF, 6 M & above, IM , (FluLaval or Fluzone) 04/24/2021,04/11/2020,08/23/2019 Seasonal Influenza, Quadriva lent Hd (Fluzone Hd) 06/08/2023 Seasonal Influenza, Quadriva lent, No Preserve, IM 04/22/2016 Seasonal Influenza, Split, I IV3, With Preserve, Inj 08/10/2015,05/17/2013 TDAP (age 10 and older)(Boostrix) 03/19/2018 03/19/2028 Zoster Vaccine Recombinant (Shingrix) 12/30/2020 ,08/23/2019 10/23/2019 documented as of this encounter Social History Tobacco Use Types Packs/Day Years Used Date Smoking Tobacco: Every Day Cigarettes 0.5 30 Smokeless Tobacco: Never Alcohol Use Standard Drinks/Week Comments Yes 0 (1 standard drink = 0.6 oz pur e alcohol) 2-3 bottled beer per day PHQ-2 Answer Date Recorded PHQ Adult Total Score 0 12/30/2020 Hunger Vital Sign Answer Date Recorded Within the past 12 months, y ou worried that your food would run out before you got the money to buy more. Never true 12/31/19 21 Within the past 12 months, t he food you bought just didn't last and you didn't have money to get more. Never true 12/30/2020 Sex and Gender Information Value Date Recorded Sex Assigned at Female 08/23/2019 11:01 AM EST Gender Identity Female 08/23/2019 11:01 AM EST Sexual Orientation Lesbian 08/23/2019 11 :01 AM EST Job Start Date Occupation Industry Not on file Not on file Not on file documented as of this encounter Miscellaneous Notes * Telephone Encounter - Shruti Billings LPN - 09/13/2023 11:59 AM EST Care Gaps Comprehensive Care Outreach Last Office/Telemedicine Visit: 06/08/2023 (in office), Visit date not found (telemedicine) Next Office Visit: 12/07/2023 Hemoglobin AIC Results: Lab Results Component Value Date/Time HEMOGLOBIN A1C - [facility] 5.7 (H) 06/08/2023 09:53 AM HEMOGLOBIN A1C - [facility] 5.7 (H) 12/06/2022 10:07 AM HEMOGLOBIN A1C - [facility] 5.6 01/10/2022 08:56 AM HEMOGLOBIN A1C - [facility] 5.9 (H) 02/15/2019 10:00 AM HEMOGLOBIN A1C - [facility] 6.0 (H) 05/21/2018 09:19 AM HEMOGLOBIN A1C - [facility] 5.7 (H) 03/19/2018 09:28 AM BP Readings from Last 1 Encounters: 06/08/23 102/60 Reviewed Health Maintenance below: Health Maintenance Topic Date Due DISCUSS TOBACCO CESSATION (REFER TO SMARTSET #6805) Never done Alpha-1 Antitrypsin Never done Depression Screening 12/30/2021 *COPD SEVERITY VERIFIED BY PFT Never done Albumin/Creatinine Ratio 01/10/2023 DXA Scan Never done COVID-19 Vaccine (2022- season) Never done HbA1c 12/07/2023 COLONOSCOPY-EVERY 3 YRS AGES 18-100 03/30/2024 Labs Dexa Care Gap Outreach Action Taken: Left message documented in this encounter Plan of Treatment Upcoming Encounters Date Type Department Care Team (Latest Contact Info) Description 09/20/2023 1:30 PM EST Hospital Encounter [facility] [address] [place] [id number] Brandy Pena MD [address] [place] [address] 09/20/2023 1:30 PM EST - 09/20/2023 2:30 PM EST Surgery [facility], End[facility] Room [facility] [address] [place] [phone] Brandy Pena MD [address] [place] [address] COLONOSCOPY FLEXIBLE PROXIMAL DIAGNOSTIC 12/07/2023 1:00 PM EDT Office Visit [facility] [address] [place] [id number] Lupe Kirby MD [address], [place] [id number] Scheduled Procedures Name Priority Associated Diagnoses Date/Ti me COLONOSCOPY FLEXIBLE PROXIMAL DIAGNOSTIC History of colon polyps 09/20/2023 1:30 PM EST Health Maintenance Due Date Last Done Comments DISCUSS TOBACCO CESSATION (REFER TO SMARTSET #5805) 1960 Alpha-1 Antitrypsin 1976 Depression Screening 12/30/2021 12/30/2020 *COPD SEVERITY VERIFIED BY PFT 09/10/2022 Albumin/Creatinine Ratio 01/10/2023 022, 10/26/2018, 05/20/2016 DXA Scan 2023 COVID-19 Vaccine (2022-24 season) 2023 HbA1c 12/07/2023 06/08/2023, 11/21, 01/10/2022, Additional history exists COLONOSCOPY-EVERY 3 YRS AGES 18-100 03/30/2024 03/30/2021, 03/30/2021, 01/08/2016, Additional history exists Diabetic Eye Exam 06/08/2024 06/08/2023, , 12/30/2020, Additional history exists Diabetic Foot Exam 06/08/2024 06/08/2023, 0 09/29/2021, 12/30/2020, Additional history exists GFR 06/08/2024 06/08/2023, 11/21, 09/08/2022, Additional history exists O2 ASSESSMENT COMPLETED IN PAST YEAR FOR COPD 06/08/2024 06/08/2023 Mammogram 07/19/2024 07/19/2023, 06/23, 09/23/2021, Additional history exists DTaP,Tdap,and Td Vaccines (3 - Td or Tdap) 03/19/2028 03/19/2018, 06/23/2007 Lipid Panel 06/08/2028 06/08/2023, 12/23, 12/30/2020, Additional history exists Zoster Vaccines Completed 12/30/2020, 08/23/2019 Cervical Cancer Screening Discontinued Pap Smear Discontinued 09/07/2021, 04/24, 05/21/2018, Additional history exists Pneumococcal Vaccine: 65+ Years Completed 01/10/2022, 12/04/2013, 02/11/2013 Influenza Vaccine (FLU shot) Completed 06/08/2023, 04/24/2021, 04/11/2020, Additional history exists GARDASIL-HPV IMMUNIZATION SERIES Aged Out No longer eligible based on patient's age to complete this topic HPV/Co-Test Discontinued Hepatitis B Aged Out No longer eligi ble based on patient's age to complete this topic MENINGOCOCCAL (MENACTRA/MENVEO) Aged Out No longer eligible based on patient's age to complete this topic documented as of this encounter Medical Devices Not on filedocumented as of this encounter Advance Directives Latest Code Status on File Code Status Date Activated Date Inactivated Comments Full Code 05/31/2022 7:26 AM 05/31/2022 2:27 PM This order reflects the patients wishes and were consensually agreed upon. Question Answer Comments Discussion of Advance Directives occurred with: Patient Care Teams Airplane Technician Relationship Specialty Start Date End Date Lupe Kirby MD [address] [place] [facility] [place] [address] PCP - General Internal Medicine 05/18/22 documented as of this encounter
--- OUTSIDE RECORDS SUMMARY | 2023-09-29 15:37 | External Medical Summary | Summary of Care ---
Author Name Unknown Organization [facility] Address [address] [place] [place] [address] Phone [phone] Care Team Providers Care Metal Welder Name Role Phone Lupe Kirby MD Primary Care Provider [phone] Reason for Visit * Auth/Cert Specialty Diagnoses / Procedures Referred By Robbie coleman Referred To Contact Diagnoses History of colon polyps History of colon polyps [Z86.010] Procedures COLONOSCOPY, DIAGNOSTIC (RECTUM) COLONOSCOPY FLEXIBLE PROXIMAL DIAGNOSTIC Referral ID Status Reason Start Date Expiration Date Visits Re quested Visits Authorized [id number] Encounter Details Date Type Department Care Team (Latest Contact Info) Description 09/20/2023 12:40 PM EST - 09/20/2023 3:22 PM EST Hospital Encounter [facility], Endoscopy Room [facility] [address] [place] [phone] Brandy Pena MD [address] [place] [address] Colonoscopy Discharge Disposition: Home - Self Care Allergies Active Allergy Reactions Criticality Noted Date Comments Pollen 12/31/2015 Sulfa Antibiotics Hives 03/07/2013 Tetracycline Hcl Edema airway 12/15/2006 documented as of this encounter (statuses as of 09/21/2023) Medications Medication Sig Dispensed Refills Start Date [...] hemoglobin A1c goal of less than 7.0% ([facility]) Take 1 Tab by mouth daily. 30 Tab 0 03/19/2018 Active Magnesium 400 MG Oral Capsule Take 1 Capsule by mouth in the morning. 0 Active Pen [place] 1/2" 29G X 12MMIndications:Type 2 diabetes mellitus with hemoglobin A1c goal of less than 7.0% ([facility]) Use 3 times a day with insulin pen E11.9 100 Each 5 01/10/2022 Active Anoro Ellipta 62.5-25 MCG/ACT Inhalation Aerosol Powder Breath Activated (umeclidinium-vilante rol) Inhale 1 Puff by mouth in the morning. 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 documented as of this encounter (statuses as of 09/21/2023) Resolved Problems Problem Noted Date Diagnosed Date Resolved Date COPD, mild 09/08/2022 01/05/2023 Overview: Per COPD GOLD Classification documented as of this encounter (statuses as of 09/21/2023) Immunizations Name Administration Dates Next Due DTaP Dipth/Tet/Acell Pertussis (Infanrix), Peds 06/23/2007 Pneumococcal Conjugate Vacci ne, 20-valent ([id number]) 01/10/2022 Pneumococcal Polysaccharide PPV23 (Pneumovax) 12/04/2013,02/11/2013 RSV [...] on file documented as of this encounter Last Filed Vital Signs Vital Sign Reading Time Taken Comments Blood Pressure 105/79 09/20/2023 2:55 PM EST Pulse 89 09/20/2023 2:55 PM EST Temperature 36.2 C (97.1 F) 09/20/2023 2:55 PM ES T Respiratory Rate 14 09/20/2023 2:55 PM EST Oxygen Saturation 98% 09/20/2023 2:55 PM EST Inhaled Oxygen Concentration - - Weight 70.3 kg (155 lb) 09/12/2023 4:48 PM EST Height 167.6 cm (5' 6") 09/12/2023 4:48 PM EST Body Mass Index 25.02 09/12/2023 4:48 PM EST documented in this encounter H&P Notes * Brandy Pena MD - 09/20/2023 1:29 PM EST Endoscopy Pre-Procedure Assessment Name: Elmira Valencia Date: 09/20/2023 Time: 1:29 PM Procedure(s): Colonoscopy; with Indication(s) of colon polyp surveillance Endoscopy Pre-Procedure Assessment: Prior to the procedure, the patient is identified. The patient's history, medications and allergieshave been reviewed. The patient is competent. The risks and benefits of the proposed procedure and the planned sedation have been discussed with the patient. All questions have been answered and informed consent for the procedure has been obtained. Prior to Admission medications Medication Sig Last Dose Discont. Carvedilol 6.25 MG Oral Tablet (Coreg) TAKE 1 TABLET BY MOUTH TWICE DAILY EVERY MORNING AND AT BEDTIME 09/20/2023 Lisinopril 10 MG Oral Tablet (Prinivil) TAKE 1 TABLET BY MOUTH EVERY MORNING 09/20/2023 Meloxicam 15 MG Oral Tablet (Mobic) TAKE 1 TABLET BY MOUTH EVERY MORNING FOR PAIN 09/20/2023 Fluticasone Propionate 50 MCG/ACT Nasal Suspension (Flonase) Administer 2 Sprays into each nostril in the morning. Past Month Cvlyggys-Oelzbytbn-Liqtublc 3.5-01338-6.1 Ophthalmic Suspension (Maxitrol) Instill 2 Drops into theleft eye in the morning and 2 Drops at noon and 2 Drops in the evening and 2 Drops before bedtime. Past Month Cetirizine HCl 10 MG Oral Tablet (ZyrTEC) TAKE 1 TABLET BY MOUTH EVERY MORNING 09/20/2023 Atorvastatin Calcium 80 MG Oral Tablet (Lipitor) Take 1 Tablet by mouth every evening. 09/19/2023 Citalopram Hydrobromide 10 MG Oral Tablet (CeleXA) Take 1 Tablet by mouth in the morning. 09/20/2023 NovoLOG FlexPen 100 UNIT/ML Subcutaneous Solution Pen-injector (insulin aspart) INJECT 3 TO 4 UNITSUNITS UNDER THE SKIN THREE TIMES A DAY WITH MEALS. DAILY TOTAL 10 UNITS 09/19/2023 Anoro Ellipta 62.5-25 MCG/ACT Inhalation Aerosol Powder Breath Activated (umeclidinium-vilanterol) Inhale 1 Puff by mouth in the morning. 09/20/2023 Pen [place] 1/2" 29G X 12MM Use 3 times a day with insulin pen E11.9 09/12/2023 Magnesium 400 MG Oral Capsule Take 1 Capsule by mouth in the morning. Past Month Aspirin 81 MG Tablet Take 1 Tab by mouth daily. 09/20/2023 acetaminophen (TYLENOL) 500 MG Tablet Take 1 Tablet by mouth every 6 hours as needed for Pain. 09/12/2023 BENADRYL 25 MG PO TABS one pill each day as needed 09/19/2023 MULTI FOR HER 50+ PO CAPS one pill each day Past Week VITAMIN D 400 UNITS PO TABS one pill each day Past Month Cefdinir 300 MG Oral Capsule (Omnicef) Take 1 Capsule by mouth in the morning and 1 Capsule before bedtime. Do all this for 10 days. For 10 days.. Review of patient's allergies indicates: Allergen Reactions Pollen Sulfa Antibiotics Hives Tetracycline [Tetracycline Hcl] Edema airway BP 108/64 | Pulse 91 | Temp 36.8 C (98.2 F) (Tympanic) | Resp 16 | Ht 1.676 m (5' 6") | Wt 70.3kg (155 lb) | SpO2 98% | BMI 25.02 kg/m | BSA 1.81 m Physical Exam: Mental Status Examination: alert and oriented. Airway Examination: normal oropharyngeal airway and neck mobility. Respiratory Examination: clear to auscultation. CV Examination: normal. ASA Grade: II - A patient with mild systemic disease. Abdomen: negative This patient has undergone a preprocedural evaluation. A determination has been made to proceed with the planned procedure under [facility] procedural guidelines and the [facility] Non-Emergent, Elective Medical Services and Treatment Recommendations (published on 10-29-19). The community and hospital prevalence of COVID-19 has been discussed as well as this patient's specific risks associated with SARS-CoV-19 infection. Based upon the clinical acuity and patient-specific care considerations, this procedure is deemed a Tier II - Intermediate acuity treatment or service with either progression or the threat of progressive disease related to the delay in treatment. Not providing the service has the potential for increasing morbidity or mortality. After reviewing the risks and benefits, the patient is deemed in satisfactory condition to undergo the procedure. The anesthesia plan is to use general anesthesia. Brandy Pena MD 09/20/2023 documented in this encounter Procedure Notes * Lupe Kirby MD - 09/20/2023 1:40 PM ESTAssociated Order(s): COLONOSCOPY [facility] Patient Name: Elmira Valencia Procedure Date: 09/20/2023 1:40 PM Date of : 1960 Admit Type: Outpatient Note Status: Finalized Date of : 1960 Admit Type: Outpatient Age: 63 Room: Endo 2 Gender: Female Note Status: Finalized Procedure: Colonoscopy Indications: High risk colon cancer surveillance: Personal history of colonic polyps; serrated polyposis syndrome Providers: Brandy Pena MD (Doctor) Referring MD: Lupe Kirby MD (Referring MD) Medicines: See the Anesthesia note for documentation of the administered medications Complications: No immediate complications. Procedure: Pre-Anesthesia Assessment: - ASA Grade Assessment: II - A patient with mild systemic disease. - Prior to the procedure, a History and Physical was performed, and patient medication allergies have been reviewed. The patient's tolerance of previous anesthesia has been reviewed. - Respiratory Examination: clear to auscultation. - CV Examination: normal. - The risks and benefits of the procedure and the sedation options and risks were discussed with the patient. All questions were answered and informed consent was obtained. - Patient identification and proposed procedure were verified prior to the procedure by the physician, the nurse and the top distribution executive. The procedure was verified in the pre-procedure area in the procedure room. - The medication list for this patient has been reviewed prior to the procedure and has been determined that the patient may proceed with the planned study. Any medication changes made as a result of the findings of this procedure have been discussed with the patient and/or site safety representative at the time of discharge from the facility. After I obtained informed consent, the scope was passed under direct vision. All instruments were visually inspected immediately before and after removal from the patient to ensure they are fully intact. Throughout the procedure, the patient's blood pressure, pulse, and oxygen saturations were monitored continuously. The colonoscopy was performed without difficulty. The patient tolerated the procedure well. The quality of the bowel preparation was good. The [id number] Colonoscope ([id number]) was introduced through the anus and advanced to the terminal ileum. Findings & Specimens: The perianal and digital rectal examinations were normal. Multiple small and large-mouthed diverticula were found in the sigmoid colon and descending colon. Multiple hyperplastic polyps were found in the rectum and sigmoid colon. The polyps were 5 to 10 mmin size. These polyps were sampled using a cold snare - seven polyps ranging in size from 5-10 mm were removed. Resection and retrieval were complete. Sigmoid colon tattoo without recurrent polyp. Two sessile polyps were found in the ascending colon. The polyps were 3 to 6 mm in size. These polyps were removed with a cold snare. Resection and retrieval were complete. Two large ascending colon AVMs without evidence of bleeding. Internal hemorrhoids seen on retroflexion. The exam was otherwise without abnormality. Impression: . Recommendation: Discharge pt home. Encourage smoking cessation. Repeat exam in 2 years. Brandy Pena MD 09/20/2023 2:31:34 PM This report has been signed electronically. documented in this encounter Nursing Notes * Anjali Monreal RN - 09/20/2023 2:36 PM EST Patient is alert, pain free, passing flatus and tolerating po fluids prior to discharge. Vital signs stable. Patient has been visited by Dr. Pena. Patient has received and demonstrates understanding of discharge instructions. Patient ambulates to private auto accompanied by endo staff. * Anjali Monreal RN - 09/20/2023 2:18 PM EST Patient transferred to post endo s/p colonoscopy. Patient awake and responding appropriately Respirations are even and unlabored on room air. NSR in the 60s on the monitor. Abdomen soft and non distended. * Art Marques RN - 09/20/2023 2:15 PM EST Specimen(s) and location(s) verified with physician post procedure 2:15 PM Art Marques RN No abdominal pressure given See anesthesia record for medication administered during procedure. Art Marques, RN Pre cleaning of scope at the bedside started by psych tech. * Dianne Lowe RN - 09/20/2023 1:16 PM EST Pt prepped and ready for anesthesia to assess. Call love in reach. documented in this encounter Plan of Treatment Upcoming Encounters Date Type Department Care Team (Late st Contact Info) Description 12/07/2023 1:00 PM EDT Office Visit [facility] [address] [place] [address] Lupe Kirby MD [address] [place] [address] Pending Results Name Type Priority Associated Diagnoses Date /Time SURGICAL PATHOLOGY Pathology Routine History of colon polyps 09/20/2023 2:15 PM EST Scheduled Orders Name Type Priority Associated Diagnoses Order Schedule GLUCOSE METER, POINT OF CARE (COMMUNICATION ORDER) Point of Care Testing Routine As Needed until discontinued starting 09/20/2023 SURGICAL PATHOLOGY Pathology Routine History of colon polyps Release Upon Ordering for 1 Occurrences starting 09/20/2023, 1 completed Health Maintenance Due Date Last Done Comments DISCUSS TOBACCO CESSATION (REFER TO SMARTSET #[id number]) 1960 Alpha-1 Antitrypsin 1976 Depression Screening 12/30/2021 12/30/2020 *COPD SEVERITY VERIFIED BY PFT 09/10/2022 Albumin/Creatinine Ratio 01/10/2023 022, 10/26/2018, 05/20/2016 DXA Scan 2023 COVID-19 Vaccine ( season) 2023 HbA1c 12/07/2023 06/08/2023, 11/21, 01/10/2022, Additional history exists Diabetic Eye Exam 06/08/2024 06/08/2023, , 12/30/2020, Additional history exists Diabetic Foot Exam 06/08/2024 06/08/2023, 0 09/29/2021, 12/30/2020, Additional history exists GFR 06/08/2024 06/08/2023, 11/21, 09/08/2022, Additional history exists Mammogram 07/19/2024 07/19/2023, 06/23, 09/23/2021, Additional history exists O2 ASSESSMENT COMPLETED IN PAST YEAR FOR COPD 09/20/2024 09/20/2023 COLONOSCOPY-EVERY 3 YRS AGES 18-100 09/20/2026 09/20/2023, 03/30/2021, 03/30/2021, Additional history exists DTaP,Tdap,and Td Vaccines (3 [...] Not on filedocumented as of this encounter Procedures Procedure Name Priority Date/Time Associated Diagnosis Comments GLUCOSE METER, POINT OF CARE AMY 09/20/2023 2:25 PM EST COLONOSCOPY 09/20/2023 1:40 PM EST GLUCOSE METER, POINT OF CARE AMY 09/20/2023 1:09 PM EST documented in this encounter Results * GLUCOSE METER, POINT OF CARE (09/20/2023 2:25 PM EST) Glucose Meter 103 70 - 120 mg/dL 09/20/2023 2:28 PM EST [facility] Blood Whole blood specimen / Unknown 09/20/2023 2:25 PM EST 09/20/2023 2:28 PM EST Brandy Pena MD LAB POINT OF CA RE TEST DOCKED DEVICE UNSOLICITED RESULTS [facility] [place] [address] * COLONOSCOPY (09/20/2023 1:40 PM EST) 09/20/2023 1:40 PM EST Narrative Procedure Note Lupe Kirby MD - 09/20/2023 1:40 PM EST [facility] Patient Name: Elmira Valencia Procedure Date: 09/20/2023 1:40 PM Date of : 1960 Admit Type: Outpatient Note Status:Finalized Date of : 1960 Admit Type: Outpatient Age: 63 Room: [facility] 2 Gender: Female Note Status: Finalized Procedure: Colonoscopy Indications: High risk colon cancer surveillance: Personalhistory of colonic polyps; serrated polyposis syndrome Providers: Brandy Pena MD (Doctor) Referring MD: Lupe Kirby MD (Referring MD) Medicines: See the Anesthesia note for documentation of theadministered medications Complications: No immediate complications. Procedure: Pre-Anesthesia Assessment: - ASA Grade Assessment: II - A patient with mildsystemic disease. - Prior to the procedure, a History and Physicalwas performed, and patient medication allergies have been reviewed. Thepatient's tolerance of previous anesthesia has been reviewed. - Respiratory Examination: clear to auscultation. - CV Examination: normal. - The risks and benefits of the procedure and thesedation options and risks were discussed with the patient. All questions wereanswered and informed consent was obtained. - Patient identification and proposed procedurewere verified prior to the procedure by the physician, the nurse and the top distribution executive.The procedure was verified in the pre-procedure area in the procedure room. - The medication list for this patient has beenreviewed prior to the procedure and has been determined that the patient may proceedwith the planned study. Any medication changes made as a result of the findingsof this procedure have been discussed with the patient and/or site safety representative atthe time of discharge from the facility. After I obtained informed consent, the scope waspassed under direct vision. All instruments were visually inspected immediatelybefore and after removal from the patient to ensure they are fully intact. Throughout the procedure, the patient's bloodpressure, pulse, and oxygen saturations were monitored continuously. The colonoscopy wasperformed without difficulty. The patient tolerated the procedure well. The qualityof the bowel preparation was good. The [id number] Colonoscope ([id number]) was introducedthrough the anus and advanced to the terminal ileum. Findings & Specimens: The perianal and digital rectal examinations were normal. Multiple small and large-mouthed diverticula were found in thesigmoid colon and descending colon. Multiple hyperplastic polyps were found in the rectum and sigmoidcolon. The polyps were 5 to 10 mm in size. These polyps were sampled using a cold snare - seven polypsranging in size from 5-10 mm were removed. Resection and retrieval were complete. Sigmoid colon tattoo without recurrent polyp. Two sessile polyps were found in the ascending colon. The polyps were3 to 6 mm in size. These polyps were removed with a cold snare. Resection and retrieval werecomplete. Two large ascending colon AVMs without evidence of bleeding. Internal hemorrhoids seen on retroflexion. The exam was otherwise without abnormality. Impression: . Recommendation: Discharge pt home. Encourage smoking cessation.Repeat exam in 2 years. Brandy Pena MD 09/20/2023 2:31:34 PM This report has been signed electronically. Lupe Kirby MD [facility] * GLUCOSE METER, POINT OF CARE (09/20/2023 1:09 PM EST) Glucose Meter 119 70 - 120 mg/dL 09/20/2023 1:18 PM EST [facility]- Blood Whole blood specimen / Unknown 09/20/2023 1:09 PM EST 09/20/2023 1:18 PM EST Brandy Pena MD LAB POINT OF CA RE TEST DOCKED DEVICE UNSOLICITED RESULTS [facility] [address] [facility] [place] [address] documented in this encounter Visit Diagnoses Diagnosis History of colon polyps Personal history of colonic polyps documented in this encounter Administered Medications Inactive Administered Medications - up to 3 most recent administrations Medication Order MAR Action Action Date Dose Rate Site isolyte-S pH 7.4 infusion Intravenous, at 75 mL/hr, for Outpatient patient Plasma-LYTE 148, isolyte-S, and isolyte-S pH 7.4 are considered equivalent - including for MAR barcode scanning., CONTINUOUS, Starting on Mon09/20/23 at 1315, Until Mon09/20/23 at 1922, Pre-Op Rate Change 09/20/2023 2:19 PM EST 900 mL/hr Continue from Pre-Op 09/20/2023 1:36 PM EST 75 mL/hr New Bag 09/20/2023 1:15 PM EST 75 mL/hr 75 mL/hr documented in this encounter Active and Recently Administered Medications Times are shown in EST. Continuous Medication Order 09/18/2023 09/19/2023 09/20/2023 isolyte-S pH 7.4 infusion Intravenous, at 75 mL/hr, for Outpatient patient Plasma-LYTE 148, isolyte-S, and isolyte-S pH 7.4 are considered equivalent - including for MAR barcode scanning., CONTINUOUS, Starting on Mon09/20/23 at 1315, Until Mon09/20/23 at 1922, Pre-Op 1315 (New Bag - Prov ider: Dianne Lowe RN)1336 (Continue from Pre-Op - Provider: Salma Keller CRNA)1419 (Rate Change - Provider: Salma Keller CRNA) documented in this encounter Advance Directives Latest Code Status on File Code Status Date Activated Date Inactivated Comments Full Code 05/31/2022 7:26 AM 05/31/2022 2:27 PM This order reflects the patients wishes and were consensually agreed upon. Question Answer Comments Discussion of Advance Directives occurred with: Patient Care Teams Metal Welder Relationship Specialty Start Date End Date Lupe Kirby MD [address] [place] [address] PCP - General Internal Medicine 05/18/22 documented as of this encounter
--- OUTSIDE RECORDS SUMMARY | 2023-09-29 15:37 | External Medical Summary ---
Author Name Unknown Address Unknown Organization : Laboratory Report Ordering Provider Test Date Status PACHECOCAMILAOSIEL 09/20/2023 13:09:45 Final Observation Date Value Abnormality Reference (Units ) Status Glucose Point of Care 09/20/2023 13:09:45 119 70-120 (mg/dL) Final Performing Location
--- OUTSIDE RECORDS SUMMARY | 2023-09-29 15:37 | External Medical Summary ---
Author Name Unknown Address Unknown Organization : Laboratory Report Ordering Provider Test Date Status PACHECOCAMILAOSIEL 09/20/2023 14:25:42 Final Observation Date Value Abnormality Reference (Units ) Status Glucose Point of Care 09/20/2023 14:25:42 103 70-120 (mg/dL) Final Performing Location
[2023-09-29] MEDS: carvediloL 6.25 MG TAB PO SCH (16:53)
[2023-09-29] MEDS: ATORVASTATIN 40 MG TAB PO SCH (21:15)
[2023-09-29] MEDS: SENNA 8.6 MG TAB PO SCH (21:15)
[2023-09-29] MEDS: ASPIRIN 81 MG ECTAB PO SCH (21:16)
[2023-09-29] MEDS: DOCUSATE SODIUM 100 MG CAP PO SCH (21:16)
[2023-09-30] MEDS: INSULIN ASPART PER UNIT CHARGE SC SCH (00:31)
[2023-09-30] MEDS: diphenhydrAMINE Capsule 25 MG CAP PO PRN (00:32)
[2023-09-30] MEDS: oxyCODONE HCL IR 5 MG TAB (IMMEDIATE RELEASE) PO PRN (03:31)
[2023-09-30] MEDS: FLUTICASONE/VILANTEROL 100/25MCG 14 PUFFS/INHALER INH SCH (08:44)
[2023-09-30] MEDS: MULTIVITAMIN TAB PO SCH (08:45)
[2023-09-30] MEDS: lisinopril 10 MG TAB PO SCH (08:45)
[2023-09-30] MEDS: CETIRIZINE HCL 10 MG TABLET PO SCH (08:45)
[2023-09-30] MEDS: CITALOPRAM 20 MG TAB PO SCH (08:45)
[2023-09-30] MEDS: LANTUS PER UNIT CHARGE SC SCH (08:53)
--- NOTE | 2023-09-30 11:02 | Orthopedic Progress Note ---
Date of Service September 30, 2023 Assessment & Plan (1) Status post left hip replacement: Overall she is doing very well. She is not having much pain in the left hip. She will be seen by physical therapy today for ambulation and range of motion exercises. She is on aspirin for DVT prophylaxis. She can be discharged home later today. She will follow-up with orthopedics in 2 weeks. Sirisha Ku was seen and examined at bedside. Overall she is doing very well. She is not having much pain in the left hip. She has been up and ambulating to the bathroom. She is no complaints.. Review of Systems All systems reviewed & are unremarkable except as noted in HPI & below. Physical Exam On physical examination of the left hip, her leg lengths are equal. She has active dorsiflexion plantarflexion of her left ankle.. Results & Data Results & Data Laboratory Results . Diagnostic Findings X-rays of the left hip show the prosthesis to be in anatomic alignment without any evidence of fracture, dislocation, or loosening. PG Care Time/CCT Total # of Minutes Spent Total Time Spent with Patient: Total time spent is greater than 50% in coordination of care (as documented) at patient's floor/unit and/or counseling patient: Coding Level of Care Code 62791 Post Operative Follow-Up Diagnoses Status post left hip replacement Z96.642
--- NOTE | 2023-09-30 11:03 | Discharge Summary ---
Date of Service September 30, 2023 Principal Diagnosis Same as "Discharge Diagnosis" noted below under Discharge Instructions. Discharge Exam On physical examination of the left hip, her leg lengths are equal. She has active dorsiflexion plantarflexion of her left ankle.. Discharge Data Procedures Performed Operation Date: 09/29/23 09:00 Actual Procedures p Left Total Hip Arthroplasty Anterior(Left) - Wong Trejo DO Ordered Studies 09/29/23 09:00 FL hip LT 1V Routine Hospital Course (1) Status post left hip replacement: On September 29, [address] [facility] and underwent a left hip replacement without complication. She had a spinal anesthetic. Postoperatively she was started on aspirin for DVT prophylaxis and transferred to the general orthopedic floors. Her hospital course was uneventful. On postop day #1, her vital signs were stable and her pain was well-controlled. She was able to participate well with physical therapy doing ambulation and range of motion exercises. She was then discharged home. She will follow-up with orthopedics in 2 weeks. PG Care Time/CCT Total # of Minutes Spent Total Time Spent with Patient: Total time spent is greater than 50% in coordination of care (as documented) at patient's floor/unit and/or counseling patient: Discharge Plan Discharge Items Patient Disposition: Home - Self-Care Reason For Visit: Left Hip Degenerative Joint Disease Discharge Diagnosis: Left hip replacement Activity: Per Instructions section Non-emergency contact: Surgeon Call non-emergency contact if: your wound has increased redness and your wound has increased drainage Follow-up/Referrals: Lupe Kirby MD [Primary Care Provider] - Diet: Regular Addtl Attending Provider Instructions: Activity and Therapy Recommendations: * If you are using [facility] then therapy will be provided at your home until they feel you have accomplished all of your goals. * If you are using [facility] then Physical Therapy will be provided until they feel you are ready to start Outpatient Physical Therapy. * If you are not using home therapy then Outpatient Physical Therapy should start about 3-5 days from your day of surgery. Therapy will last about 6-10 weeks * You were shown a series of exercises in the hospital. Do these exercises three times each day including the exercises you were shown in physical therapy. * Get up and walk several times each day.~ For the first four weeks, try not to stand or walk for more than one hour at a time. If you do stand or walk for more than one hour, you will not hurt anything, but your leg will likely swell.~~ * As you feel comfortable, you may change from the walker or crutches to a cane and~then to independent walking. Medications: * Narcotic You will likely be sent home from the hospital with a prescription for the narcotic pain medication that worked best throughout your stay. * Cefadroxil -take the antibiotic twice a day for 10 days to help with infection. * Aspirin Most patients will be required to take Aspirin 81mg twice a day for 6 weeks after surgery. This is obtained [id number] and a prescription is not necessary. * Other medications may be prescribed for specific circumstances. If you have any questions, please call the office at . * Resume previous home medications unless otherwise instructed TEDs/Elastic Stockings: The white elastic stockings help limit swelling and prevent blood clots from forming in your legs. The more you wear them, the more they work. Wear them for six weeks. Dressing Care: Leave the Silverlon dressing in place for 7 days. After 7 days you may remove the dressing. If the incision is not draining then you may leave the kellie open to air. If there is a little bit of drainage or if the kellie are getting stuck on your clothing then cover the incision with a dry dressing. The kellie will be removed at your 2 week follow-up appointment. Showering: You may shower with the Silverlon dressing in place. Do not let the shower spray hit the dressing directly. Pat the Silverlon dressing dry. If the dressing becomes wet underneath, then simply remove the dressing. Keep the incision dry until you are 7 days out from the day of surgery. After 7 days you may remove the Silverlon dressing and shower with the kellie exposed. Let soapy water run over the kellie and pat them dry. Do not scrub or soak the incision. Things To Watch For: * Drainage from the incision site that occurs more than one week after your miky kathleen. * Increased redness at the incision site. * Fever above 102 degrees Fahrenheit. * Unusual chest pain or shortness of breath. * Call [facility] at with any of the above problems Follow-Up Visit: Follow-up with Dr. Trejo's PA (Wong Mason) 2-3 weeks after your day of surgery. He will remove your kellie and answer any questions. If you have any additional questions or concerns, Dr Trejo is usually in the office at the same time and will be available An appointment was probably scheduled when you signed-up for surgery in the off ice. If you have any questions call Office Instructions: More detailed instructions as well as Frequently Asked Questions were provided in a folder by our office when you signed-up for surgery. Please review these instructions when you get home. If you have any further questions or concerns, please feel free to call the office at [phone] Pending Studies at Discharge: No Stand-Alone Forms: [facility], Pain - Opioid Pain Management, Smoking Cessation Medications and DC Order Prescriptions: New oxycodone 5 mg Tablet 5 mg PO Q4H PRN (Reason: pain) Qty: 30 0RF cefadroxil 500 mg capsule 500 mg PO BID 10 Days Qty: 20 0RF Continued [facility]DME[facility] See Rx Instructions .MEDSUPPLY Qty: 1 0RF Rx Instructions: As directed citalopram 10 mg tablet 10 mg PO QAM meloxicam 15 mg tablet 15 mg PO QAM acetaminophen [Tylenol Extra Strength] 500 mg Tablet 1,000 mg PO Q6H PRN (Reason: Pain) insulin aspart U-100 [Novolog FlexPen U-100 Insulin] 100 unit/mL (3 mL) insulin pen 1 sliding scale dose SUBCUT TIDM Rx Instructions: PER SLIDING SCALE vitamin B complex Capsule 1 cap PO QAM carvedilol 6.25 mg Tablet 6.25 mg PO BID Qty: 60 0RF atorvastatin [Lipitor] 80 mg tablet 80 mg PO QPM lisinopril 10 mg tablet 10 mg PO QAM multivitamin Tablet 1 tab PO QAM magnesium Tablet 1 tab PO QAM cholecalciferol (vitamin D3) [Vitamin D3] 25 mcg (1,000 unit) Tablet 25 mcg PO QAM fluticasone furoate-vilanterol [Breo Ellipta] 100-25 mcg/dose Blister With Device 1 inh INHALATION QAM cetirizine 10 mg Tablet 10 mg PO QAM diphenhydramine HCl [Benadryl Allergy] 25 mg Tablet 25 mg PO DAILY PRN (Reason: Allergy Symptoms) Changed aspirin 81 mg Tablet,Delayed Release (Dr/Ec) 81 mg PO BID 42 Days Qty: 90 0RF Discharge Orders: Discharge Order (Routine); Ordered 09/30/23 Ordered By: Wong Brown/Other Patient Handouts: DVT Post Op Prevention Admission Data Admit Date/Time: 09/29/23 10:48 Attending Provider: Wong Trejo Admit Provider: Wong Trejo Primary Care Provider: Lupe Kirby Other Interventions: Discharge Summary Assessment (RN) Last Done: 09/30/23 10:47
== END 2023-09-30 11:27 | disposition home or self-care (01) ==
LOC: 3E 07:33 → ASU 07:33